=== PATIENT | male | born 1975 | race Two or more races ===

== ENCOUNTER 2021-01-18 14:20 | Outpatient (REF) | payer OTHER, SELFPAY ==
[2021-01-18 15:14] LABS: COVID-19 Test Negative (Negative)
== END 2021-01-18 14:21 | disposition home or self-care (01) ==
LOC: HO.EMPCOV 14:20
PROVIDERS: Visit Provider Internal Medicine
DX: Z20.822 Contact with and (suspected) exposure to COVID-19 (principal)
CPT/HCPCS: 36415; 87635; C9803

== ENCOUNTER 2023-08-11 07:44 | Outpatient (REF) | payer OTHER, SELFPAY ==
[2023-08-11 11:11] LABS: MANUAL DIFF FLAG NO
[2023-08-11 11:17] LABS: Basophils Percent Auto 0.9 % (0-2); Eosinophils Absolute Auto 0.4 X10*3/uL (0.0-0.4); Eosinophils Percent Auto 9.4 % (0-4); Hematocrit 41.1 % (42.0-52.0); Hemoglobin 13.9 g/dl (14.0-18.0); Imm Gran Abs Auto 0.02 X10*3/uL (0.00-0.03); Imm Gran Pct Auto 0.5 % (0.0-0.4); Lymphocytes Absolute Auto 1.9 X10*3/uL (1.2-4.9); Lymphocytes Percent Auto 43.1 % (20-40); Mean Corpuscular HGB Conc 33.8 g/dl (31.0-36.0); Mean Corpuscular Hemoglobin 28.3 pg (27.0-33.0); Mean Corpuscular Volume 83.5 fL (80.0-98.0); Mean Platelet Volume 11.5 fL (9.4-12.4); Monocytes Absolute Auto 0.5 X10*3/uL (0.1-1.2); Monocytes Percent Auto 11.1 % (2-11); Neutrophils Absolute Auto 1.5 x10*3/uL (2.0-8.3); Platelet Count 163 X10*3/uL (160-400); Red Blood Count 4.92 X10*6/uL (4.60-5.80); Red Cell Distribution Width 12.8 % (11.0-16.0); White Blood Count 4.3 X10*3/uL (4.8-10.8)
[2023-08-11 11:20] LABS: Appearance Urine Clear; Glucose Urine UA >=1000 mg/dL (Negative); Leukocyte Esterase Urine Negative (Negative); Nitrite Urine Negative (Negative); Specific Gravity - Urine 1.025 (1.005-1.025); UMIC TRIGGER UACC YES; Urine Blood Negative (Negative); Urine Ketones Negative (Negative); Urine Protein Negative (Neg-Trace)
[2023-08-11 11:23] LABS: Color Urine Yellow
[2023-08-11 11:29] LABS: Estimated Average Glucose 260 mg/dL; Hemoglobin A1c % 10.7 % (<6.0)
[2023-08-11 11:29] LABS: Bacteria Urine None Seen (None Seen); Hyaline Casts Urine 0-2 /LPF (0-2); RBC Urine 0-2 /HPF (0-2); Squamous Epithelial Cell Urine 0-2 /HPF (0-2); WBC Urine 0-5 /HPF (0-5)
[2023-08-11 11:36] LABS: Alanine Aminotransferase 48 U/L (0-40); Albumin Level 4.3 g/dL (3.5-5.0); Alkaline Phosphatase 44 U/L (39-117); Anion Gap 14 (12-20); Aspartate Amino Transferase 22 U/L (5-37); Bilirubin Total 0.7 mg/dL (0.0-1.0); Blood Urea Nitrogen 21 mg/dL (9-16); Calcium 9.2 mg/dL (8.4-10.2); Carbon Dioxide 30 mmol/L (22-29); Chloride 95 mmol/L (96-108); Cholesterol 157 mg/dL (<200); Estimated Glomerular Filt Rate > 60; Glucose Fasting 264 mg/dL (60-99); HDL Cholesterol 28 mg/dL (>40); Potassium 3.6 mmol/L (3.3-5.1); Sodium 135 mmol/L (135-145); Total Protein 7.5 g/dL (6.5-8.0); Triglycerides 632 mg/dL (<150)
[2023-08-11 11:45] LABS: Creatinine Urine 122.14 mg/dL; Microalbum/Creatinine Ratio Ur 34.3 ug/mg cr (<30)
[2023-08-11 11:55] LABS: TSH reflex Free T4 1.34 uIU/mL (0.32-4.0)
== END 2023-08-11 07:45 | disposition home or self-care (01) ==
LOC: HO.HMGCLDS 07:44
PROVIDERS: PCP Nurse Practitioner Family; Visit Provider Nurse Practitioner Family
DX: E11.9 Type 2 diabetes mellitus without complications (principal)
CPT/HCPCS: 36415; 80053; 80061; 81001; 82043; 82570; 83036; 84443; 85025

== ENCOUNTER 2023-08-13 07:46 | Outpatient (AMB) | payer OTHER, SELFPAY ==
--- NOTE | 2023-08-13 08:19 | A.OFFPC_ITS ---
Vital Signs 08/13/23 08:21 08/13/23 08:49 Height 5 ft 11 in Weight 245 lb BMI 34.2 BP 142/82 H 130/78 Blood Pressure Location Rt brachial Position Sitting Pulse 93 Pulse Source Pulse Oximeter Pulse Oximetry (%) 96 Oxygen Delivery Method Room Air Intake Visit Reasons: Transfer from [facility] Intake Note: Pt is here today as a transfer patient to [facility]/ Allergies lisinopril Adverse Reaction (Unknown, Verified 08/20/23 09:29) cough Medication List - Last Reconciled 08/20/23 by ALEXANDRA Vogel atorvastatin 20 mg PO DAILY chlorthalidone 25 mg PO DAILY 90 days doxycycline hyclate 100 mg PO BID empagliflozin (Jardiance) 25 mg PO QAM irbesartan 300 mg PO DAILY metformin ER 1,000 mg (2 x 500 mg) PO BID 90 days metoprolol succinate ER 50 mg PO DAILY Tobacco use date assessed: 08/13/23 Dental Screening Dental Screen Date: 08/13/23 Did you have a dental visit in the last 12 months?: No Was dental information given to patient?: No HPI HPI Comments History of Present Illness Details Patient is a 48-year-old in today for a diabetic follow-up. He was last seen in office 3 months prior to this appointment. He had labs drawn which demonstrated hyperlipidemia, an A1c 10.7, a fasting glucose of 264. He last had an eye exam of February 2023. He is due for Podiatry. He states that he has not modified his diet and has stopped exercising, but intends to improve his diet and start exercising again. The time of appointment patient has a chief complaint of a laceration to his left wheat after walking into the side of his bed. He states that the wound is over 2-week-old but that is not fully healed. He states that there is warmth, redness, which seems like it it has gotten bigger over the past 2 weeks. He has been applying topical bacitracin and cleaning the wound. Denies any recent fevers, nausea, vomiting, diarrhea, or neuropathy. Patient is up-to-date with flu vaccine, he is a current employee of [employer]. He states he will get the COVID vaccine at [facility] when he picks up his prescriptions. [facility] Medical History (Updated 08/20/23 @ 09:31 by ALEXANDRA Vogel) Cellulitis Hyperlipidemia Diabetes Surgical History History of nasal surgery History of vasectomy Family History Father HTN (hypertension) Diabetes mellitus Mother No problems noted. Brother No problems noted. Son No problems noted. Daughter No problems noted. Social History Housing: Apartment Alcohol intake: never Patient Tobacco Use Status: Never used Tobacco e-Cigarette/Vaping Use: Never Used service: No Current occupational status: employed Cognitive needs: No Hearing needs: No Vision needs: Yes Questionnaire PHQ-9 Over the last 2 weeks, how often have you been bothered by any of the following problems? 1. Little interest or pleasure in doing things: not at all 2. Feeling down, depressed, or hopeless: not at all 3. Trouble falling or staying asleep, or sleeping too much: not at all 4. Feeling tired or having little energy: not at all 5. Poor appetite or overeating: not at all 6. Feeling bad about yourself - or that you are a failure or have let yourself or your family down: not at all 7. Trouble concentrating on things, such as reading the newspaper or watching television: not at all 8. Moving or speaking so slowly that other people could have noticed. Or the opposite - being so fidgety or restless that you have been moving around a lot more than usual: not at all 9. Thoughts that you would be better off or of hurting yourself in some way: not at all Total score: 0 Depression Screening Interpretation: Negative Depression Screening Done: Yes 91771 - PHQ-9 Billing: Yes Source: Developed by Drs. Gonzalez Hinojosa, Nazanin Mccray, Bharat Hayes and colleagues, with an educational josh from [employer]. Thrive Questionnaire Date Thrive assessed: 08/13/23 I am a: Patient What is your living situation today?: I have a steady place to live Within the past 12 months, did the food you bought not last and you didn't have the money to get more?: Never true Within the past 12 months, did you worry whether your food would run out before you got money to buy more?: Never true Do you have trouble paying for medicines?: No Do you have trouble getting transportation to medical appointments?: No Do you have trouble paying your heating and electricity bill?: No Do you have trouble taking care of your child, family member or friend?: No Do you have trouble with day-to-day activities such as bathing, preparing meals, shopping, managing finances, etc.?: No Are you currently unemployed and looking for a job?: No Are you interested in more education?: Yes AUDIT C Alcohol Use Questionnaire (AUDIT-C) 1. How often do you have a drink containing alcohol?: Monthly or less 2. How many drinks containing alcohol do you have on a typical day when you are drinking?: 1 or 2 3. How often do you have six or more drinks on one occasion?: Never Total Score: 1 FESTUS-7 AMB Questionnaire FESTUS-7 Date FESTUS - 7 assessed: 08/13/23 Feeling nervous, anxious, or on edge: 0 = Not at all Not being able to stop or control worryin = Not at all Worrying too much about different things: 0 = Not at all Trouble relaxin = Not at all Being so restless that it is hard to sit still: 0 = Not at all Becoming easily annoyed or irritable: 0 = Not at all Feeling afraid as if something awful might happen: 0 = Not at all Total FESTUS-7 score (0-4 normal; 5-9 mild; 10-14 moderate; 15-21 severe): 0 Source: Developed by Drs. Gonzalez Hinojosa, Nazanin Mccray, Bharat Hayes and colleagues, with an educational josh from [employer]. Review of Systems Const Details: Constitutional : No Weight loss, No Fever, No Chills, No Fatigue, No Malaise ENT/Mouth : No sore throat, No Rhinorrhea Eyes: No Eye Pain, No Swelling, No Redness Cardiovascular : No Chest Pain, No SOB, No Dyspnea on Exertion, No Orthopnea, No Edema, No Palpitations Respiratory : No Cough, No Sputum, No Wheezing Gastrointestinal : No Nausea, No Vomiting, No Diarrhea, Admits Constipation, No abdominal Pain, No Hematochezia, No Melena Genitourinary : No Dysuria, No Urinary Frequency, No Hematuria, Musculoskeletal : No joint pain, No Myalgias, No Joint Swelling Skin : Admits small laceration left wheat. Neuro : No Weakness, No Numbness, No Dizziness, No Headache Psych : No Anxiety/Panic, No Depression Heme/Lymph: No Bruising, No Bleeding,No Lymphadenopathy Endocrine : No Polyuria, No Polydipsia All other systems reviewed and are negative Physical exam (Primary Care) Vital Signs: Last Vital Signs Pulse 93 08/13/23 08:21 BP 130/78 08/13/23 08:49 Pulse Ox 96 08/13/23 08:21 Oxygen Delivery Method Room Air 08/13/23 08:21 Care Plan Goal for BP management: Blood pressure retaken numbers improved. Vital signs are stable. BMI result Body Mass Index 34.2 Tobacco/Smoking Status: Tobacco use Status Tobacco use date assessed 08/13/23 08/13/23 08:25 Patient Tobacco Use Status Never used Tobacco 08/13/23 08:25 e-Cigarette/Vaping Use Never Used 08/13/23 08:25 PHQ-9: PHQ-9 Score PHQ-9: Total score 0 08/20/23 09:29 Depression Screening Interpretation: Negative Thrive Assessment: Date of Thrive Assessment Date Thrive assessed 08/13/23 08/13/23 08:27 Const Other: Appearance: Alert.? Oriented X3.? No acute distress.? Head: Normocephalic, atraumatic, no step-offs or deformities Eyes: Pupils equal, round and reactive to light.? ENT: TM intact, pearly askew. Pharnyx normal. ? Neck: Normal inspection.? Neck supple.? CVS: Normal heart rate and rhythm.? Pulses normal.? Respiratory: No respiratory distress.? Breath sounds normal.? Skin: Small dimed sized laceration on ventral aspect of left leg, just above the ankle. Clear discharge, erythema present around laceration. Painful. Warm. Psych: No SI/HI. Neuro: Oriented X 3.? No motor deficit.? No sensory deficit. General: cooperative and no acute distress Results Reviewed Results Reviewed: WBC 4.3 L 4.8-10.8 X10*3/uL RBC 4.92 4.60-5.80 X10*6/uL HGB 13.9 L 14.0-18.0 g/dl HCT 41.1 L 42.0-52.0 % MCV 83.5 80.0-98.0 fL MCH 28.3 27.0-33.0 pg MCHC 33.8 31.0-36.0 g/dl RDW 12.8 11.0-16.0 % PLT 163 160-400 X10*3/uL MPV 11.5 9.4-12.4 fL Neut Pct Auto 35.0 L 45-73 % ImGran Pct Auto 0.5 H 0.0-0.4 % Lymp Pct Auto 43.1 H 20-40 % [place] Pct Auto 11.1 H 2-11 % Eos Pct Auto 9.4 H 0-4 % Baso Pct Auto 0.9 0-2 % NRBC Pct Auto 0.0 0.0-0.2 /100WBC ANC Neut Abs # 1.5 L 2.0-8.3 x10*3/uL ImGran Abs Auto 0.02 0.00-0.03 X10*3/uL Lymph Abs Auto 1.9 1.2-4.9 X10*3/uL [place] Abs Auto 0.5 0.1-1.2 X10*3/uL Eos Abs Auto 0.4 0.0-0.4 X10*3/uL Baso Abs Auto 0.0 0.0-0.2 X10*3/uL NRBC Abs Auto 0.000 0.0-0.012 X10*3/uL Sodium 135 135-145 mmol/L Potassium 3.6 3.3-5.1 mmol/L CL 95 L 96-108 mmol/L CO2 30 H 22-29 mmol/L Gap 14 12-20 BUN 21 H 9-16 mg/dL Creat 1.24 0.5-1.4 mg/dL EGFR > 60 NOTE: For -[place] individuals, multiply the result by 1.210. Chronic Kidney Disease: Estimated GFR < 60 mL/min/1.73m2 Severe Kidney Disease: Estimated GFR < 15 mL/min/1.73m2 FBS 264 H 60-99 mg/dL A fasting glucose of 126 mg/dl or greater on more than one occasion is considered diagnostic of diabetes. CA 9.2 8.4-10.2 mg/dL Total Bili 0.7 0.0-1.0 mg/dL AST (GOT) 22 5-37 U/L ALT (GPT) 48 H 0-40 U/L Protein, Total 7.5 6.5-8.0 g/dL Alb 4.3 3.5-5.0 g/dL Triglyceride 632 H <150 mg/dL Desirable Triglyceride: less than 150 mg/dL Borderline High Triglyceride 150-199 mg/dL High Triglyceride: 200-499 mg/dL Very High Triglyceride: greater than or equal to 5OO mg/dL Cholesterol 157 <200 mg/dL Desirable Cholesterol: less than 200 mg/dL Borderline High Cholesterol: 200-239 mg/dL High Cholesterol: greater than 239 mg/dL LDL Calculated Test not performed <100 mg/dL Unable to calculate the LDL. The formula of Friedwald Abel, and Yamilet is only valid if the triglycerides are less than 400 mg/dl. HDL 28 L >40 mg/dL Desirable HDL: greater than 40 mg/dL Note: This HDL assay may give artificially low results in patients with liver disease. Alk Phos 44 39-117 U/L TSH 1.34 0.32-4.0 uIU/mL These labs were reviewed with patient. Assessment and Plan Assessment & Plan (1) Hyperlipidemia: Comment: Patient is going to have LDL direct lab draw. Will intervene based on those results. Currently the patient is taking atorvastatin 20 mg p.o. daily. Code(s): E78.5 - Hyperlipidemia, unspecified Qualifiers: Hyperlipidemia type: unspecified Qualified Code(s): E78.5 - Hyperlipidemia, unspecified (2) Cellulitis: Comment: Patient has dime-size laceration to ventral aspect of left lower extremity. Patient has been educated on how to clean and cover the laceration. He will be given doxycycline to be taken in its entirety and as directed. Patient has been educated on signs of worsening symptoms and when to return to the office or when to present to the emergency room Code(s): L03.90 - Cellulitis, unspecified Qualifiers: Laterality: left Site of cellulitis: extremity Site of cellulitis of extremity: lower extremity Qualified Code(s): L03.116 - Cellulitis of left lower limb (3) Diabetes: Comment: Patient states that he has not been watching his diet or exercise, but that he intends to start doing that. He has elevated A1c in office today. He has been started Jardiance 25 mg p.o. daily. He has been educated to take a log of his blood pressures and of his blood sugar levels at home. He will need to follow up in 1 month. His last eye exam was in February 2023. He will make an appointment for the podiatry which he has not seen in 2 years. Code(s): E11.9 - Type 2 diabetes mellitus without complications Qualifiers: Diabetes mellitus complication status: without complication Diabetes mellitus lobsterman insulin use: without care home use Diabetes mellitus type: type 2 Qualified Code(s): E11.9 - Type 2 diabetes mellitus without complication s Orders: Orders LDL Cholesterol Direct 08/13/23 E78.5 - Hyperlipidemia, unspecified Medications: New doxycycline hyclate 100 mg PO BID 20 caps 0RF empagliflozin (Jardiance) 25 mg PO QAM 60 tabs 0RF Coding Level of Care Code Est Pt Level 3 (69586) Diagnoses Hyperlipidemia, unspecified hyperlipidemia type E78.5 Hyperlipidemia type: unspecified Cellulitis of left lower extremity L03.116 Laterality: left Site of cellulitis: extremity Site of cellulitis of extremity: lower extremity Type 2 diabetes mellitus without complication, without long-term current use of insulin E11.9 Diabetes mellitus complication status: without complication Diabetes mellitus lobsterman insulin use: without lobsterman use Diabetes mellitus type: type 2 Time Spent (min) 30
[2023-08-13 08:21] VITALS: BP 142/82; PULSE 93; O2SAT 96; BMI 34.2
[2023-08-13 08:49] VITALS: BP 130/78
== END 2023-08-13 08:54 | disposition home or self-care (01) ==
PROVIDERS: PCP Nurse Practitioner Family; Visit Provider Nurse Practitioner Primary Care
DX: E78.5 Hyperlipidemia, unspecified (principal); L03.116 Cellulitis of left lower limb; E11.9 Type 2 diabetes mellitus without complications
CPT/HCPCS: 99213

== ENCOUNTER 2023-08-13 08:56 | Outpatient (REF) | payer OTHER, SELFPAY ==
[2023-08-14 10:23] LABS: LDL Cholesterol Direct 47 mg/dL (<100)
== END 2023-08-13 08:57 | disposition home or self-care (01) ==
LOC: HO.HMGCLDS 08:56
PROVIDERS: PCP Nurse Practitioner Primary Care; Visit Provider Nurse Practitioner Primary Care
DX: E78.5 Hyperlipidemia, unspecified (principal)
CPT/HCPCS: 36415; 83721

== ENCOUNTER 2023-09-06 11:51 | Outpatient (AMB) | payer OTHER, SELFPAY ==
[2023-09-06 12:26] VITALS: BP 120/70; PULSE 97; TEMP 36.7; O2SAT 96; BMI 33.5
--- NOTE | 2023-09-06 12:26 | AM.OFFWIN_ITS ---
Intake Vital Signs 09/06/23 12:26 Height 5 ft 11 in Weight 240 lb BMI 33.5 BP 120/70 Blood Pressure Location Lt brachial Position Sitting Pulse 97 Pulse Source Pulse Oximeter Temp 98.1 F Temp Source Temporal Artery Scan Pulse Oximetry (%) 96 Oxygen Delivery Method Room Air Intake Visit Reasons: EP Cold Symptoms Intake Note: pt is here today for cold symptoms started yesterday Patient Tobacco Use Status: Never used Tobacco Allergies lisinopril Adverse Reaction (Unknown, Verified 09/06/23 12:31) cough Do you need a note to return to daycare/school/sports/work: Yes HPI HPI Comments History of Present Illness Details He presents to office with cold symptoms Co-worker is + covid He saod symptoms started today + fatigue No body aches No congestion but + cough No ST or ear pain PFSH Medical History (Updated 09/06/23 @ 12:43 by Barb Bradley PA-C) Cellulitis Hyperlipidemia Diabetes Surgical History History of nasal surgery History of vasectomy Family History Father HTN (hypertension) Diabetes mellitus Mother No problems noted. Brother No problems noted. Son No problems noted. Daughter No problems noted. Social History Housing: Apartment Alcohol intake: never Patient Tobacco Use Status: Never used Tobacco e-Cigarette/Vaping Use: Never Used service: No Current occupational status: employed Cognitive needs: No Hearing needs: No Vision needs: Yes Review of Systems Const Denies body aches, Denies chills, Reports fatigue and Denies fever(s) Eyes Denies blurry vision ENT Denies dizziness, Denies otalgia, Denies nasal congestion, Denies sore throat and Denies throat swelling Card Denies chest pain and Denies dyspnea Resp Denies chest congestion, Reports cough and Denies dyspnea GI Denies abdominal pain Neuro Denies dizziness Endo Reports fatigue Aller/Immun Denies throat swelling Physical Exam Vital Signs: Last Vital Signs Temp 98.1 F 09/06/23 12:26 Pulse 97 09/06/23 12:26 BP 120/70 09/06/23 12:26 Pulse Ox 96 09/06/23 12:26 Oxygen Delivery Method Room Air 09/06/23 12:26 BMI result Body Mass Index 33.5 General: Non-toxic, NAD. Speaking full sentences. Skin: Warm dry throughout Eye: EOMI, PERRL HENT: Airway patent. Uvula midline. No pharyngeal erythema or edema. No [employer]. Bilateral canals clear. TM non-erythematous, non-bulging. No TM perforation or hemotympanum noted. Respiratory: CTA bilaterally. No wheezes, rales or rhonchi Cardiac: RRR. No murmur MSK: Full ROM extremities. Neurology: A/O. No aphasia or facial droop. Gait without abnormality Psych: Good mood and affect Assessment & Plan Assessment & Plan (1) Exposure to COVID-19 virus: Code(s): Z20.822 - Contact with and (suspected) exposure to COVID-19 Plan: Patient seen and evaluated. + covid exposure with symptoms Will have covid test taken in lab next door Patient gave verbal understanding and had no additional questions or concerns at time of discharge All questions answered Plan Patient seen and evaluated. COVID was negative + exposure and discussed retest in 2 days he would like to have it done at this lab so additional order was placed He will isolate and symptomatic management at home Patient gave verbal understanding and had no additional questions or concerns at time of discharge All questions answered Orders: Orders BinaxNOW Covid-19 Ag Today Z20.822 - Contact with and (suspected) exposure to COVID-19 BinaxNOW Covid-19 Ag 09/08/23 Z20.822 - Contact with and (suspected) exposure to COVID-19 Coding Level of Care Code Est Pt Level 3 (21690) Diagnoses Exposure to COVID-19 virus Z20.822
== END 2023-09-06 15:18 | disposition home or self-care (01) ==
PROVIDERS: PCP Nurse Practitioner Primary Care; Visit Provider Physician Assistant
DX: Z20.822 Contact with and (suspected) exposure to COVID-19 (principal)
CPT/HCPCS: 99213

== ENCOUNTER 2023-09-06 12:44 | Outpatient (REF) | payer OTHER, SELFPAY ==
[2023-09-06 13:16] LABS: Binax Internal Control QC Valid; Binax Now Covid-19 Ag Negative (Negative); Binax Performed by: HO.TORG
== END 2023-09-06 12:45 | disposition home or self-care (01) ==
LOC: HO.HMGCLDS 12:44
PROVIDERS: PCP Nurse Practitioner Primary Care; Visit Provider Physician Assistant
DX: Z11.52 Encounter for screening for COVID-19 (principal); Z20.822 Contact with and (suspected) exposure to COVID-19
CPT/HCPCS: 87811

== ENCOUNTER 2023-09-13 07:46 | Outpatient (AMB) | payer OTHER, SELFPAY ==
[2023-09-13 08:10] VITALS: BP 130/82; PULSE 96; O2SAT 95; BMI 33.6
--- NOTE | 2023-09-13 08:10 | A.OFFPC_ITS ---
Vital Signs 09/13/23 08:10 Height 5 ft 11 in Weight 241 lb BMI 33.6 BP 130/82 Blood Pressure Location Rt brachial Position Sitting Pulse 96 Pulse Source Pulse Oximeter Pulse Oximetry (%) 95 Oxygen Delivery Method Room Air Intake Visit Reasons: 1 Month Follow Up~ Intake Note: Pt is here to follow up for his BP and he has forgotten his BP logs Allergies lisinopril Adverse Reaction (Unknown, Verified 09/13/23 08:48) cough Medication List - Last Reconciled 09/13/23 by ALEXANDRA Vogel atorvastatin 20 mg PO DAILY chlorthalidone 25 mg PO DAILY 90 days empagliflozin (Jardiance) 25 mg PO QAM irbesartan 300 mg PO DAILY metformin ER 1,000 mg (2 x 500 mg) PO BID 90 days metoprolol succinate ER 50 mg PO DAILY Tobacco use date assessed: 09/13/23 Dental Screening Dental Screen Date: 09/13/23 Did you have a dental visit in the last 12 months?: No Did you have a dental problem in the last 6 months where you did not have access to dental care?: No Was dental information given to patient?: No HPI HPI Comments History of Present Illness Details Patient is a 48-year-old male here today for follow-up regarding cellulitis of the left lower extremity, elevated sugar, and hypertension. Patient was last seen in office 1 month prior, where he had an A1c of 10.7. The patient was put on Jardiance 25 mg and instructed to keep blood sugar logs and blood pressure logs at home. Today the patient has blood pressure sugar log that demonstrated postprandial blood sugar levels averaging between 130 and 180. Patient states that he would like to continue to try and modify his diet and utilize exercise to control his blood sugar levels. His blood pressure readings at home have been normal. Patient has no complaints at time appointment today. [facility] Medical History (Updated 09/13/23 @ 08:59 by ALEXANDRA Vogel) Cellulitis Hyperlipidemia Diabetes Surgical History History of nasal surgery History of vasectomy Family History Father HTN (hypertension) Diabetes mellitus Mother No problems noted. Brother No problems noted. Son No problems noted. Daughter No problems noted. Social History Housing: Apartment Alcohol intake: never Patient Tobacco Use Status: Never used Tobacco e-Cigarette/Vaping Use: Never Used service: No Current occupational status: employed Cognitive needs: No Hearing needs: No Vision needs: Yes Questionnaire PHQ-9 Over the last 2 weeks, how often have you been bothered by any of the following problems? 1. Little interest or pleasure in doing things: not at all 2. Feeling down, depressed, or hopeless: not at all 3. Trouble falling or staying asleep, or sleeping too much: not at all 4. Feeling tired or having little energy: not at all 5. Poor appetite or overeating: not at all 6. Feeling bad about yourself - or that you are a failure or have let yourself or your family down: not at all 7. Trouble concentrating on things, such as reading the newspaper or watching television: not at all 8. Moving or speaking so slowly that other people could have noticed. Or the opposite - being so fidgety or restless that you have been moving around a lot more than usual: not at all 9. Thoughts that you would be better off or of hurting yourself in some way: not at all Total score: 0 Depression Screening Interpretation: Negative Depression Screening Done: Yes 33461 - PHQ-9 Billing: Yes Source: Developed by Drs. Gonzalez Hinojosa, Nazanin Mccray, Bharat Hayes and colleagues, with an educational josh from [employer]. Thrive Questionnaire Date Thrive assessed: 09/13/23 I am a: Patient What is your living situation today?: I have a steady place to live Within the past 12 months, did the food you bought not last and you didn't have the money to get more?: Never true Within the past 12 months, did you worry whether your food would run out before you got money to buy more?: Never true Do you have trouble paying for medicines?: No Do you have trouble getting transportation to medical appointments?: No Do you have trouble paying your heating and electricity bill?: No Do you have trouble taking care of your child, family member or friend?: No Do you have trouble with day-to-day activities such as bathing, preparing meals, shopping, managing finances, etc.?: No Are you currently unemployed and looking for a job?: No Are you interested in more education?: No AUDIT C Alcohol Use Questionnaire (AUDIT-C) 1. How often do you have a drink containing alcohol?: Monthly or less 2. How many drinks containing alcohol do you have on a typical day when you are drinking?: 1 or 2 3. How often do you have six or more drinks on one occasion?: Never Total Score: 1 FESTUS-7 AMB Questionnaire FESTUS-7 Date FESTUS - 7 assessed: 09/13/23 Feeling nervous, anxious, or on edge: 0 = Not at all Not being able to stop or control worryin = Not at all Worrying too much about different things: 0 = Not at all Trouble relaxin = Not at all Being so restless that it is hard to sit still: 0 = Not at all Becoming easily annoyed or irritable: 0 = Not at all Feeling afraid as if something awful might happen: 0 = Not at all Total FESTUS-7 score (0-4 normal; 5-9 mild; 10-14 moderate; 15-21 severe): 0 Source: Developed by Drs. Gonzalez Hinojosa, Nazanin Mccray, Bharat Hayes and colleagues, with an educational josh from [employer]. Review of Systems Const Details: Constitutional : No Weight loss, No Fever, No Chills, No Fatigue, No Malaise ENT/Mouth : No sore throat, No Rhinorrhea Eyes: No Eye Pain, No Swelling, No Redness Cardiovascular : No Chest Pain, No SOB, No Dyspnea on Exertion, No Orthopnea, No Edema, No Palpitations Respiratory : No Cough, No Sputum, No Wheezing Gastrointestinal : No Nausea, No Vomiting, No Diarrhea, No Constipation, No abdominal Pain, No Hematochezia, No Melena Genitourinary : No Dysuria, No Urinary Frequency, No Hematuria, Musculoskeletal : No joint pain, No Myalgias, No Joint Swelling Skin : No Skin Lesions, No rash Neuro : No Weakness, No Numbness, No Dizziness, No Headache Psych : No Anxiety/Panic, No Depression Heme/Lymph: No Bruising, No Bleeding,No Lymphadenopathy Endocrine : No Polyuria, No Polydipsia All other systems reviewed and are negative Physical exam (Primary Care) Vital Signs: Last Vital Signs Pulse 96 09/13/23 08:10 BP 130/82 09/13/23 08:10 Pulse Ox 95 09/13/23 08:10 Oxygen Delivery Method Room Air 09/13/23 08:10 Care Plan Goal for BP management: Patient will continue take blood pressure readings at home. BMI result Body Mass Index 33.6 Tobacco/Smoking Status: Tobacco use Status Tobacco use date assessed 09/13/23 09/13/23 08:15 Patient Tobacco Use Status Never used Tobacco 09/13/23 08:13 e-Cigarette/Vaping Use Never Used 09/13/23 08:13 Depression Screening Interpretation: Negative Thrive Assessment: Date of Thrive Assessment Date Thrive assessed 08/13/23 09/13/23 08:13 Const Other: Appearance: Alert.? Oriented X3.? No acute distress.? Eyes: Pupils equal, round and reactive to light.?Sclera white. ENT: Pharynx normal.? Neck: Normal inspection.? Neck supple.? CVS: Normal heart rate and rhythm.? Pulses normal.? Respiratory: No respiratory distress.? Breath sounds normal.? Skin: Skin warm and dry.? Normal skin color. No drainage or erythema. No signs of active infection. Neuro: Oriented X 3.? No motor deficit.? No sensory deficit. CN 2-12 intact. Sensate to monofilament Results Reviewed Results Reviewed: Patient's urinary microalbumin was 34.3. Assessment and Plan Assessment & Plan (1) Hyperlipidemia: Comment: Patient's LDL direct value came back at 47. His triglyceride level is 632. Patient will be started on fenofibrate to be taken as directed. Patient has been educated on the side effects of these medications and how to take them properly. Code(s): E78.5 - Hyperlipidemia, unspecified Qualifiers: Hyperlipidemia type: unspecified Qualified Code(s): E78.5 - Hyperlipidemia, unspecified (2) Diabetes: Comment: Patient has a follow-up appointment in 2 months were you have his A1c rechecked. Recently had eye exam where he is sending us the results. Patient would like to continue to modify his diet and increase exercise to try to control blood sugar levels. Code(s): E11.9 - Type 2 diabetes mellitus without complications Qualifiers: Diabetes mellitus type: type 2 Diabetes mellitus terminal manager insulin use: without terminal manager use Diabetes mellitus complication status: without complication Qualified Code(s): E11.9 - Type 2 diabetes mellitus without comp lications (3) Microalbuminuria: Comment: Patient had education session to reinforce the importance of controlled blood sugar levels. Patient will get referral to Nephrology. He is agreeable to this plan Code(s): R80.9 - Proteinuria, unspecified Plan: Follow-up in 2 month Plan Take your medications as prescribed. If you were prescribed antibiotics today, it is important that you take your medication to their entirety, do not skip any doses, do not finish them early. Follow-up with your primary care provider this week. Return to the emergency department with new or worsening symptoms. Such as fevers, chills, chest pain, shortness of breath, nausea, vomiting, dizziness, headache, vision changes, lethargy In case of emergency call 911 Coding Level of Care Code Est Pt Level 3 (26750) Diagnoses Hyperlipidemia, unspecified hyperlipidemia type E78.5 Hyperlipidemia type: unspecified Type 2 diabetes mellitus without complication, without long-term current use of insulin E11.9 Diabetes mellitus type: type 2 Diabetes mellitus terminal manager insulin use: without terminal manager use Diabetes mellitus complication status: without complication Microalbuminuria R80.9 Time Spent (min) 45
== END 2023-09-13 09:30 | disposition home or self-care (01) ==
PROVIDERS: PCP Nurse Practitioner Primary Care; Visit Provider Nurse Practitioner Primary Care
DX: E78.5 Hyperlipidemia, unspecified (principal); E11.9 Type 2 diabetes mellitus without complications; R80.9 Proteinuria, unspecified
CPT/HCPCS: 99214

== ENCOUNTER 2023-10-09 10:52 | Outpatient (AMB) | payer OTHER, SELFPAY ==
--- NOTE | 2023-10-09 10:53 | HO.NEPHOV ---
HPI HPI Comments History of Present Illness Details Middle aged man with DM since 2021 and HTN and Obesity referred for protienuria Currently on Irbesartan Jardiance was added a month ago USed to weight 250 lbs Lost 20 lbs with diet and exercise- stationary bike [facility] Medical History (Updated 10/09/23 @ 11:14 by Kervin Bobo MD) Cellulitis Hyperlipidemia Diabetes Surgical History History of nasal surgery History of vasectomy Family History Father HTN (hypertension) Diabetes mellitus Mother No problems noted. Brother No problems noted. Son No problems noted. Daughter No problems noted. Social History Housing: Apartment Alcohol intake: never Patient Tobacco Use Status: Never used Tobacco e-Cigarette/Vaping Use: Never Used service: No Current occupational status: employed Cognitive needs: No Hearing needs: No Vision needs: Yes Vital Signs 10/09/23 10:54 Height 5 ft 11 in Weight 236 lb 6 oz BMI 33.0 BP 128/80 Blood Pressure Location Rt brachial Position Sitting Pulse 95 Pulse Source Pulse Oximeter Pulse Oximetry (%) 97 Oxygen Delivery Method Room Air Physical Exam Vital Signs: Last Vital Signs Pulse 95 10/09/23 10:54 BP 128/80 10/09/23 10:54 Pulse Ox 97 10/09/23 10:54 Oxygen Delivery Method Room Air 10/09/23 10:54 BMI result Body Mass Index 33.0 Const General: comfortable Nutritional Appearance: well nourished Orientation/consciousness: patient oriented x3 HEENT Head: No normal to inspection Mouth: moist mucous membranes Neck Neck: Yes supple and Yes no JVD Resp Auscultation: clear to auscultation bilaterally, no rales and rub present Cardio Jugular venous distension: no JVD Palpation: no palpable S3 and no palpable S4 Heart sounds: no rubs GI Palpation (GI): Soft to palpation and nontender Percussion: No Fluid wave present General: Yes no CVA tenderness Back/Spine/Pelvis Back: no CVA tenderness Skin General skin exam: no rashes or lesions noted Neuro General: patient oriented x3 Extrem General: Yes no pedal edema and No clubbing Assessment & Plan Assessment & Plan (1) Microalbuminuria: Comment: Most likely due to the combination diabetic kidney disease and obesity Code(s): R80.9 - Proteinuria, unspecified Plan: Maintain A1C < 7% Continue Irbesartan for renal protection Discussed weight loss Increase physical activity Low salt diet Increase PO fluid intake Work up as outlined Orders: Orders Electrolytes 4 Weeks R80.9 - Proteinuria, unspecified Creatinine 4 Weeks R80.9 - Proteinuria, unspecified Calcium 4 Weeks R80.9 - Proteinuria, unspecified Sodium Urine Random 4 Weeks R80.9 - Proteinuria, unspecified Blood Urea Nitrogen 4 Weeks R80.9 - Proteinuria, unspecified Total Protein Urine Random 4 Weeks R80.9 - Proteinuria, unspecified Creatinine Urine 4 Weeks R80.9 - Proteinuria, unspecified Coding Level of Care Code New Pt Level 4 (73930) Diagnoses Microalbuminuria R80.9 Results Reviewed Nephrology Results: Hgb 13.9 g/dl (14.0-18.0) L 08/11/23 WBC 4.3 X10*3/uL (4.8-10.8) L 08/11/23 Plt Count 163 X10*3/uL (160-400) 08/11/23 Sodium 135 mmol/L (135-145) 08/11/23 Potassium 3.6 mmol/L (3.3-5.1) 08/11/23 Chloride 95 mmol/L (96-108) L 08/11/23 Carbon Dioxide 30 mmol/L (22-29) H 08/11/23 BUN 21 mg/dL (9-16) H 08/11/23 Creatinine 1.24 mg/dL (0.5-1.4) 08/11/23 Calcium 9.2 mg/dL (8.4-10.2) 08/11/23 Urine Protein Negative mg/dL (Neg-Trace) 08/11/23 Urine Creatinine 122.14 mg/dL 08/11/23
[2023-10-09 10:54] VITALS: BP 128/80; PULSE 95; O2SAT 97; BMI 33.0
== END 2023-10-09 11:12 | disposition home or self-care (01) ==
PROVIDERS: PCP Nurse Practitioner Primary Care; Referring Provider Nurse Practitioner Primary Care; Visit Provider Internal Medicine Hypertension Specialist
DX: R80.9 Proteinuria, unspecified (principal)
CPT/HCPCS: 99204

== ENCOUNTER → 2023-10-09 10:52 | Outpatient (BNVA) | payer OTHER, SELFPAY | PROVIDERS: PCP Nurse Practitioner Primary Care; Referring Provider Nurse Practitioner Primary Care; Visit Provider Internal Medicine Hypertension Specialist ==

== ENCOUNTER 2023-11-17 08:15 | Outpatient (REF) | payer OTHER, SELFPAY ==
[2023-11-17 12:00] LABS: Creatinine Urine 67.96 mg/dL; Total Protein Urine Random 8 mg/dL (<12)
[2023-11-17 12:26] LABS: Anion Gap 13 (12-20); Blood Urea Nitrogen 20 mg/dL (9-16); Calcium 9.5 mg/dL (8.4-10.2); Carbon Dioxide 29 mmol/L (22-29); Chloride 99 mmol/L (96-108); Estimated Glomerular Filt Rate > 60; Potassium 3.9 mmol/L (3.3-5.1); Sodium 137 mmol/L (135-145)
== END 2023-11-17 08:16 | disposition home or self-care (01) ==
LOC: HO.HMGCLDS 08:15
PROVIDERS: PCP Nurse Practitioner Primary Care; Visit Provider Internal Medicine Hypertension Specialist
DX: R80.9 Proteinuria, unspecified (principal)
CPT/HCPCS: 36415; 80051; 82310; 82565; 82570; 84156; 84300; 84520

== ENCOUNTER 2023-11-19 12:03 | Outpatient (AMB) | payer OTHER, SELFPAY ==
[2023-11-19 12:05] VITALS: BP 120/80; PULSE 95; O2SAT 96; BMI 32.5
--- NOTE | 2023-11-19 12:05 | HO.NEPHOV ---
HPI HPI Comments History of Present Illness Details Middle aged man with DM since 2021 and HTN and Obesity referred for protienuria Currently on Irbesartan Jardiance was added a month ago USed to weight 250 lbs Lost 20 lbs with diet and exercise- stationary bike [facility] Medical History (Updated 10/09/23 @ 11:14 by Kervin Bobo MD) Cellulitis Hyperlipidemia Diabetes Surgical History History of nasal surgery History of vasectomy Family History Father HTN (hypertension) Diabetes mellitus Mother No problems noted. Brother No problems noted. Son No problems noted. Daughter No problems noted. Social History Housing: Apartment Alcohol intake: never Patient Tobacco Use Status: Never used Tobacco e-Cigarette/Vaping Use: Never Used service: No Current occupational status: employed Cognitive needs: No Hearing needs: No Vision needs: Yes Vital Signs 11/19/23 12:05 Height 5 ft 11 in Weight 233 lb BMI 32.5 BP 120/80 Blood Pressure Location Lt brachial Position Sitting Pulse 95 Pulse Source Pulse Oximeter Pulse Oximetry (%) 96 Oxygen Delivery Method Room Air Physical Exam Vital Signs: Last Vital Signs Pulse 95 11/19/23 12:05 BP 120/80 11/19/23 12:05 Pulse Ox 96 11/19/23 12:05 Oxygen Delivery Method Room Air 11/19/23 12:05 BMI result Body Mass Index 32.5 Const General: comfortable Nutritional Appearance: well nourished Orientation/consciousness: patient oriented x3 HEENT Head: No normal to inspection Mouth: moist mucous membranes Neck Neck: Yes supple and Yes no JVD Resp Auscultation: clear to auscultation bilaterally, no rales and rub present Cardio Jugular venous distension: no JVD Palpation: no palpable S3 and no palpable S4 Heart sounds: no rubs GI Palpation (GI): Soft to palpation and nontender Percussion: No Fluid wave present General: Yes no CVA tenderness Back/Spine/Pelvis Back: no CVA tenderness Skin General skin exam: no rashes or lesions noted Neuro General: patient oriented x3 Extrem General: Yes no pedal edema and No clubbing Assessment & Plan Assessment & Plan (1) Microalbuminuria: Comment: Most likely due to the combination diabetic kidney disease and obesity Code(s): R80.9 - Proteinuria, unspecified Plan: Maintain A1C < 7% Continue Irbesartan for renal protection Discussed weight loss Increase physical activity Low salt diet Increase PO fluid intake Coding Level of Care Code Est Pt Level 3 (28285) Diagnoses Microalbuminuria R80.9 Results Reviewed Nephrology Results: Hgb 13.9 g/dl (14.0-18.0) L 08/11/23 WBC 4.3 X10*3/uL (4.8-10.8) L 08/11/23 Plt Count 163 X10*3/uL (160-400) 08/11/23 Sodium 137 mmol/L (135-145) 11/17/23 Potassium 3.9 mmol/L (3.3-5.1) 11/17/23 Chloride 99 mmol/L (96-108) 11/17/23 Carbon Dioxide 29 mmol/L (22-29) 11/17/23 BUN 20 mg/dL (9-16) H 11/17/23 Creatinine 0.95 mg/dL (0.5-1.4) 11/17/23 Calcium 9.5 mg/dL (8.4-10.2) 11/17/23 Urine Protein Negative mg/dL (Neg-Trace) 08/11/23 Urine Creatinine 67.96 mg/dL 11/17/23
== END 2023-11-19 12:15 | disposition home or self-care (01) ==
PROVIDERS: PCP Nurse Practitioner Primary Care; Visit Provider Internal Medicine Hypertension Specialist
DX: R80.9 Proteinuria, unspecified (principal)
CPT/HCPCS: 99213

== ENCOUNTER → 2023-11-19 12:03 | Outpatient (BNVA) | payer OTHER, SELFPAY | PROVIDERS: PCP Nurse Practitioner Primary Care; Visit Provider Internal Medicine Hypertension Specialist ==

== ENCOUNTER 2024-01-07 08:18 | Outpatient (AMB) | payer OTHER, SELFPAY ==
--- NOTE | 2024-01-07 08:21 | MHC.PC.OV ---
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 Allergies lisinopril Adverse Reaction (Unknown, Verified 01/07/24 08:35) cough Medication List - Last Reconciled 01/07/24 by ALEXANDRA Vogel atorvastatin 20 mg PO DAILY chlorthalidone 25 mg PO DAILY 90 days empagliflozin (Jardiance) 25 mg PO QAM fenofibric acid (choline) (Trilipix) 45 mg PO BEDTIME irbesartan 300 mg PO DAILY metformin ER 1,000 mg (2 x 500 mg) PO BID metoprolol succinate ER 50 mg PO DAILY Tobacco use date assessed: 09/13/23 Dental Screening Dental Screen Date: 09/13/23 HPI HPI Comments History of Present Illness Details Patient is a 48-year-old male here for a diabetic follow-up. Patient denies polyuria and polydipsia. Previous in office A1c was 10.7. Patient was placed on Jardiance 25 mg, had metformin increased to 1000 mg b.i.d. he has also been working on his diet and exercise. Patient declines the pneumococcal vaccine today. Patient is up-to-date with ophthalmology. Patient is due for podiatry will refer. Patient is in office A1c is 9.7. Discussed with that he should be started on either insulin, or 3rd hypoglycemic agent. Patient has declined this states that he wants to continue to improve with diet and exercise. Patient re-educated again on the need to control blood sugar levels. Patient states that he understands and would still like see if he can improve his A1c and blood sugar levels with diet and exercise. Patient has hypertriglyceridemia. Was started on atorvastatin and fenofibrate 3 months prior. Patient has been instructed to redraw fasting labs within next 2 weeks. [facility] Medical History Cellulitis Hyperlipidemia Diabetes Surgical History History of nasal surgery History of vasectomy Family History Father HTN (hypertension) Diabetes mellitus Mother No problems noted. Brother No problems noted. Son No problems noted. Daughter No problems noted. Social History Housing: Apartment Alcohol intake: never Patient Tobacco Use Status: Never used Tobacco e-Cigarette/Vaping Use: Never Used service: No Current occupational status: employed Cognitive needs: No Hearing needs: No Vision needs: Yes Questionnaire Thrive Questionnaire Date Thrive assessed: 09/13/23 FESTUS-7 AMB Questionnaire FESTUS-7 Date FESTUS - 7 assessed: 09/13/23 Source: Developed by Drs. Gonzalez Hinojosa, Nazanin Mccray, Bharat Hayes and colleagues, with an educational josh from [employer]. Review of Systems Const All systems reviewed & are unremarkable except as noted in HPI and below Denies headache(s) ENT Denies dizziness and Denies headache(s) Card Denies chest pain and Denies dyspnea Resp Denies dyspnea GI Denies diarrhea, Denies nausea and Denies vomiting Neuro Denies dizziness and Denies headache(s) Endo Denies polydipsia and Denies polyuria Physical exam (Primary Care) Vital Signs: Last Vital Signs Pulse 76 01/07/24 08:25 BP 128/78 01/07/24 08:25 Pulse Ox 98 01/07/24 08:25 Oxygen Delivery Method Room Air 01/07/24 08:25 BMI result Body Mass Index 32.8 Tobacco/Smoking Status: Tobacco use Status Tobacco use date assessed 09/13/23 01/07/24 08:21 Patient Tobacco Use Status Never used Tobacco 01/07/24 08:21 e-Cigarette/Vaping Use Never Used 01/07/24 08:21 Thrive Assessment: Date of Thrive Assessment Date Thrive assessed 09/13/23 01/07/24 08:21 Const Other: Appearance: Alert.? Oriented X3.? No acute distress.? Head: Normocephalic, atraumatic Eyes: Pupils equal, round and reactive to light.? Neck: Normal inspection.? Neck supple.? CVS: Normal heart rate and rhythm.? Pulses normal.? Respiratory: No respiratory distress.? Breath sounds normal.? Neuro: Oriented X 3.? No motor deficit.? No sensory deficit. CN 2-12 intact Results AMB Hemoglobin A1c AMB Hemoglobin A1c 9.7 % Last Edit by Andres Hernandez CMA on 01/07/24 08:39 Results Reviewed Results Reviewed: Laboratory Last Values Hgb A1c (Clinic) 9.7 % (4.0-6.0) H 01/07/24 08:39 Assessment and Plan Assessment & Plan (1) Diabetes: Comment: Explained to patient the importance of adding 3rd p.o. hypoglycemic agent, or starting insulin. Patient has denied in with instead like to continue to improve with diet exercise. Patient will be asked to record blood sugar levels at home bring them to his next appointment. Patient also will have referral to Podiatry Code(s): E11.9 - Type 2 diabetes mellitus without complications Qualifiers: Diabetes mellitus complication status: without complication Diabetes mellitus senior living insulin use: without termite control technician use Diabetes mellitus type: type 2 Qualified Code(s): E11.9 - Type 2 diabetes mellitus without complications (2) Hyperlipidemia: Comment: Patient's LDL direct value came back at 47. His triglyceride level is 632. Patient was started on fenofibrate to be taken as directed. Patient has been educated on the side effects of these medications and how to take them properly. Patient due for fasting labs. Code(s): E78.5 - Hyperlipidemia, unspecified Qualifiers: Hyperlipidemia type: unspecified Qualified Code(s): E78.5 - Hyperlipidemia, unspecified Plan: Take your medications as prescribed. If you were prescribed antibiotics today, it is important that you take your medication to their entirety, do not skip any doses, do not finish them early. Follow-up with your primary care provider this week. Return to the emergency department with new or worsening symptoms. Such as fevers, chills, chest pain, shortness of breath, nausea, vomiting, dizziness, headache, vision changes, lethargy In case of emergency call 911 Plan Follow-up in 3 months. Orders: Orders Comprehensive Met. Panel 01/07/24 E11.9 - Type 2 diabetes mellitus without complications Lipid Panel 01/07/24 E78.5 - Hyperlipidemia, unspecified AMB Hemoglobin A1c 01/07/24 Z13.9 - Encounter for screening, unspecified Referrals Podiatry Referral E11.9 - Type 2 diabetes mellitus without complications Medications: Refilled fenofibric acid (choline) (Trilipix) 45 mg PO BEDTIME 90 caps 0RF Review Patient declined Pneumococcal Vaccine: 01/07/24 Coding Level of Care Code Est Pt Level 3 (59391) Diagnoses Type 2 diabetes mellitus without complication, without long-term current use of insulin E11.9 Diabetes mellitus complication status: without complication Diabetes mellitus senior living insulin use: without senior living use Diabetes mellitus type: type 2 Hyperlipidemia, unspecified hyperlipidemia type E78.5 Hyperlipidemia type: unspecified Time Spent (min) 28
[2024-01-07 08:25] VITALS: BP 128/78; PULSE 76; O2SAT 98; BMI 32.8
== END 2024-01-07 10:03 | disposition home or self-care (01) ==
PROVIDERS: PCP Nurse Practitioner Primary Care; Visit Provider Nurse Practitioner Primary Care
DX: E11.9 Type 2 diabetes mellitus without complications (principal)
CPT/HCPCS: 83036; 99213

== ENCOUNTER 2024-03-10 09:42 | Outpatient (AMB) | payer OTHER, SELFPAY ==
--- NOTE | 2024-03-10 09:45 | MHC.PC.OV ---
Vital Signs 03/10/24 09:47 03/10/24 10:10 Height 5 ft 11 in Weight 229 lb BMI 31.9 BP 114/76 Blood Pressure Location Lt brachial Position Sitting Pulse 101 H 88 Pulse Source Pulse Oximeter Auscultation Pulse Oximetry (%) 96 Oxygen Delivery Method Room Air Intake Visit Reasons: f/u Intake Note: pt is here for follow up for DM. Allergies lisinopril Adverse Reaction (Unknown, Verified 03/10/24 10:00) cough Medication List - Last Reconciled 03/10/24 by ALEXANDRA Vogel atorvastatin 20 mg PO DAILY chlorthalidone 25 mg PO DAILY 90 days empagliflozin (Jardiance) 25 mg PO QAM fenofibric acid (choline) (Trilipix) 45 mg PO BEDTIME irbesartan 300 mg PO DAILY metformin ER 1,000 mg (2 x 500 mg) PO BID metoprolol succinate ER 50 mg PO DAILY Tobacco use date assessed: 03/10/24 Dental Screening Dental Screen Date: 09/13/23 HPI HPI Comments History of Present Illness Details Is a 48-year-old male in today for a diabetic follow-up. Patient denies symptoms of polyuria polydipsia or neuropathy. He is currently utilizing metformin 1000 mg p.o. b.i.d., as well as Jardiance 25 mg p.o. daily. Patient has lost 6 lb since his previous visit states that he has been working on his diet and improve exercise. Will order fasting labs today. Patient eligible for A1c redrawn 3 weeks. Will add 3rd oral hypoglycemic based on A1c results. Patient is up-to-date with microalbumin and currently is establish care with Nephrology. [facility] Medical History Cellulitis Hyperlipidemia Diabetes Surgical History History of nasal surgery History of vasectomy Family History Father HTN (hypertension) Diabetes mellitus Mother No problems noted. Brother No problems noted. Son No problems noted. Daughter No problems noted. Social History Housing: Apartment Alcohol intake: never Patient Tobacco Use Status: Never used Tobacco e-Cigarette/Vaping Use: Never Used service: No Current occupational status: employed Cognitive needs: No Hearing needs: No Vision needs: Yes Questionnaire Thrive Questionnaire Date Thrive assessed: 09/13/23 AUDIT C Alcohol Use Questionnaire (AUDIT-C) 1. How often do you have a drink containing alcohol?: Monthly or less 2. How many drinks containing alcohol do you have on a typical day when you are drinking?: 1 or 2 3. How often do you have six or more drinks on one occasion?: Never Total Score: 1 FESTUS-7 AMB Questionnaire FESTUS-7 Date FESTUS - 7 assessed: 09/13/23 Source: Developed by Drs. Gonzalez Hinojosa, Nazanin Mccray, Bharat Hayes and colleagues, with an educational josh from [employer]. Review of Systems Const All systems reviewed & are unremarkable except as noted in HPI and below Physical exam (Primary Care) Vital Signs: Last Vital Signs Pulse 101 H 03/10/24 09:47 BP 114/76 03/10/24 09:47 Pulse Ox 96 03/10/24 09:47 Oxygen Delivery Method Room Air 03/10/24 09:47 BMI result Body Mass Index 31.9 Tobacco/Smoking Status: Tobacco use Status Tobacco use date assessed 03/10/24 03/10/24 09:52 Patient Tobacco Use Status Never used Tobacco 03/10/24 09:52 e-Cigarette/Vaping Use Never Used 03/10/24 09:52 Thrive Assessment: Date of Thrive Assessment Date Thrive assessed 09/13/23 03/10/24 09:52 Const Other: Appearance: Alert.? Oriented X3.? No acute distress.? Head: Normocephalic, atraumatic. CVS: Normal heart rate and rhythm.? Pulses normal.? Respiratory: No respiratory distress.? Breath sounds normal.? Skin: Skin warm and dry.? Normal skin color.? Normal skin turgor.? Extremities: No lower extremity edema. 5/5 strength to bilateral upper and lower extremities Neuro: Oriented X 3.? No motor deficit.? No sensory deficit. CN 2-12 intact Assessment and Plan Assessment & Plan (1) Diabetes: Comment: Explained to patient the importance of adding 3rd p.o. hypoglycemic agent, or starting insulin. Patient has denied in with instead like to continue to improve with diet exercise. Patient will be asked to record blood sugar levels at home bring them to his next appointment. Patient also will have referral to Podiatry Code(s): E11.9 - Type 2 diabetes mellitus without complications Qualifiers: Diabetes mellitus type: type 2 Diabetes mellitus fdc insulin use: without fdc use Diabetes mellitus complication status: without complication Qualified Code(s): E11.9 - Type 2 diabetes mellitus without complications (2) Microalbuminuria: Comment: Most likely due to the combination diabetic kidney disease and obesity. Has established care with car icer. Code(s): R80.9 - Proteinuria, unspecified (3) Hyperlipidemia: Comment: Patient's LDL direct value came back at 47. His triglyceride level is 632. Patient was started on fenofibrate to be taken as directed. Patient has been educated on the side effects of these medications and how to take them properly. Patient due for fasting labs. Code(s): E78.5 - Hyperlipidemia, unspecified Qualifiers: Hyperlipidemia type: unspecified Qualified Code(s): E78.5 - Hyperlipidemia, unspecified Plan: will redraw labs Plan follow up in 3 months. Orders: Orders Complete Blood Count Auto Diff Today Z13.0 - Encounter for screening for diseases of the blood and blood-forming organs and certain disorders involving the immune mechanism Comprehensive Met. 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
[2024-03-10 09:47] VITALS: BP 114/76; PULSE 101; O2SAT 96; BMI 31.9
[2024-03-10 10:10] VITALS: PULSE 88
== END 2024-03-10 10:21 | disposition home or self-care (01) ==
PROVIDERS: PCP Nurse Practitioner Primary Care; Visit Provider Nurse Practitioner Primary Care
DX: E11.9 Type 2 diabetes mellitus without complications (principal); R80.9 Proteinuria, unspecified; E78.5 Hyperlipidemia, unspecified
CPT/HCPCS: 99213

== ENCOUNTER 2024-07-21 07:48 | Outpatient (REF) | payer OTHER, SELFPAY ==
[2024-07-21 10:48] LABS: Alanine Aminotransferase 38 U/L (0-40); Aspartate Amino Transferase 34 U/L (5-37); Cholesterol 135 mg/dL (<200); HDL Cholesterol 29 mg/dL (>40); LDL Cholesterol Calculated 41 mg/dL (<100); Triglycerides 327 mg/dL (<150)
[2024-07-21 10:56] LABS: Estimated Average Glucose 209 mg/dL; Hemoglobin A1c % 8.9 % (<6.0); Total Hemoglobin (HGBA1C) 3742.7116 umol/L
== END 2024-07-21 07:49 | disposition home or self-care (01) ==
LOC: HO.HMGCLDS 07:48
PROVIDERS: PCP Internal Medicine; Visit Provider Internal Medicine
DX: E11.29 Type 2 diabetes mellitus with other diabetic kidney complication (principal); R80.9 Proteinuria, unspecified; E78.5 Hyperlipidemia, unspecified
CPT/HCPCS: 36415; 80061; 83036; 84450; 84460

== ENCOUNTER 2024-07-22 11:53 | Outpatient (AMB) | payer OTHER, SELFPAY ==
[2024-07-22 12:02] VITALS: BP 122/80; PULSE 92; O2SAT 96; BMI 32.1
--- NOTE | 2024-07-22 12:02 | A.OFFPC_ITS ---
Vital Signs 07/22/24 12:02 Height 5 ft 11 in Weight 230 lb BMI 32.1 BP 122/80 Blood Pressure Location Rt brachial Position Sitting Pulse 92 Pulse Source Pulse Oximeter Pulse Oximetry (%) 96 Oxygen Delivery Method Room Air Intake Visit Reasons: Transfer from [facility]/ Intake Note: Pt is here today to establish care transferring for [facility]. Pt mentions Rt toe nail being black for awhile. Allergies lisinopril Adverse Reaction (Unknown, Verified 07/22/24 12:26) cough Medication List - Last Reconciled 07/22/24 by Shae Machado MD atorvastatin 20 mg PO DAILY chlorthalidone 25 mg PO DAILY 90 days empagliflozin (Jardiance) 25 mg PO QAM fenofibric acid (choline) (Trilipix) 45 mg PO BEDTIME irbesartan 300 mg PO DAILY metformin ER 1,000 mg (2 x 500 mg) PO BID metoprolol succinate ER 50 mg PO DAILY Tobacco use date assessed: 07/22/24 Dental Screening Dental Screen Date: 07/22/24 Did you have a dental visit in the last 12 months?: Yes Did you have a dental problem in the last 6 months where you did not have access to dental care?: No Was dental information given to patient?: Patient has dentist HPI Transfer from [facility]/ HPI Details 49-year-old male with history dyslipidem ia, diabetes mellitus type 2, hypertension, here today to establish care with another PCP. He currently takes Jardiance 25 mg but takes it 2 hours after breakfast, and has been taking his metformin twice a day 1000 mg per tablet. Admits to being noncompliant with diet lately and has not been exercising regularly. Latest fasting labs showed improvement in diabetes control but not yet within normal limits, at 8.9%. Fasting lipids are within normal limits except for elevated triglycerides and low HDL cholesterol. [facility], last exam was in 08/29/2023 which showed presence of nonproliferative retinopathy in both eyes, due for a recheck again later this year Has been referred to [facility], patient has to call and schedule appointment Patient due for colon cancer screening, no family history of colon cancer, wants to do Cologuard test [facility] Medical History (Updated 07/22/24 @ 12:52 by Shae Machado MD) Diabetes mellitus with mild nonproliferative retinopathy Essential hypertension Mixed dyslipidemia Diabetes mellitus with hyperglycemia, without long-term current use of insulin Diabetes mellitus with microalbuminuria, without long-term current use of insulin Cellulitis Hyperlipidemia Surgical History History of nasal surgery History of vasectomy Family History Father HTN (hypertension) Diabetes mellitus Mother No problems noted. Brother No problems noted. Son No problems noted. Daughter No problems noted. Social History Housing: Apartment Alcohol intake: never Patient Tobacco Use Status: Never used Tobacco e-Cigarette/Vaping Use: Never Used service: No Current occupational status: employed Cognitive needs: No Hearing needs: No Vision needs: Yes Questionnaire PHQ-9 Over the last 2 weeks, how often have you been bothered by any of the following problems? 1. Little interest or pleasure in doing things: not at all 2. Feeling down, depressed, or hopeless: not at all 3. Trouble falling or staying asleep, or sleeping too much: not at all 4. Feeling tired or having little energy: not at all 5. Poor appetite or overeating: not at all 6. Feeling bad about yourself - or that you are a failure or have let yourself or your family down: not at all 7. Trouble concentrating on things, such as reading the newspaper or watching television: not at all 8. Moving or speaking so slowly that other people could have noticed. Or the opposite - being so fidgety or restless that you have been moving around a lot more than usual: not at all 9. Thoughts that you would be better off or of hurting yourself in some way: not at all Total score: 0 Depression Screening Interpretation: Negative Depression Screening Done: Yes 59141 - PHQ-9 Billing: Yes Source: Developed by Drs. Gonzalez Hinojosa, Nazanin Mccray, Bharat Hayes and colleagues, with an educational josh from [employer]. Thrive Questionnaire Date Thrive assessed: 07/22/24 I am a: Patient What is your living situation today?: I have a steady place to live Within the past 12 months, did the food you bought not last and you didn't have the money to get more?: Never true Within the past 12 months, did you worry whether your food would run out before you got money to buy more?: Never true Do you have trouble paying for medicines?: No Do you have trouble getting transportation to medical appointments?: No Do you have trouble paying your heating and electricity bill?: No Do you have trouble taking care of your child, family member or friend?: No Do you have trouble with day-to-day activities such as bathing, preparing meals, shopping, managing finances, etc.?: No Are you currently unemployed and looking for a job?: No Are you interested in more education?: I choose not to answer this question Please select the resources that you would like help with: None Currently or been in a relationship where the following occur: No concerns reported THRIVE Score: 0 AUDIT C Alcohol Use Questionnaire (AUDIT-C) 1. How often do you have a drink containing alcohol?: Never 2. How many drinks containing alcohol do you have on a typical day when you are drinking?: 1 or 2 3. How often do you have six or more drinks on one occasion?: Never Total Score: 0 Score Reviewed/Action Taken: Yes FESTUS-7 AMB Questionnaire FESTUS-7 Date FESTUS - 7 assessed: 07/22/24 Feeling nervous, anxious, or on edge: 0 = Not at all Not being able to stop or control worryin = Not at all Worrying too much about different things: 0 = Not at all Trouble relaxin = Not at all Being so restless that it is hard to sit still: 0 = Not at all Becoming easily annoyed or irritable: 0 = Not at all Feeling afraid as if something awful might happen: 0 = Not at all Total FESTUS-7 score (0-4 normal; 5-9 mild; 10-14 moderate; 15-21 severe): 0 Source: Developed by Drs. Gonzalez Hinojosa, Nazanin Mccray, Bharat Hayes and colleagues, with an educational josh from [employer]. FESTUS-7 Assessment Billing FESTUS-7 Assessment Tool: FESTUS-7 Assessment 80787 Review of Systems Const All systems reviewed & are unremarkable except as noted in HPI and below Denies headache(s) Eyes Details: Goes to [facility] for his diabetes retinopathy screening ENT Denies dizziness and Denies headache(s) Card Denies chest pain and Denies dyspnea Resp Denies dyspnea GI Denies diarrhea, Denies nausea and Denies vomiting Reports no additional complaints Musc Reports no additional complaints Skin/Breast Denies lesions and Denies rash Neuro Denies dizziness and Denies headache(s) Psych Reports no additional complaints Endo Denies polydipsia and Denies polyuria David/Lymph Reports no additional complaints Aller/Immun Reports no additional complaints Physical exam (Primary Care) Vital Signs: Last Vital Signs Pulse 92 07/22/24 12:02 BP 122/80 07/22/24 12:02 Pulse Ox 96 07/22/24 12:02 Oxygen Delivery Method Room Air 07/22/24 12:02 BMI result Body Mass Index 32.1 Tobacco/Smoking Status: Tobacco use Status Tobacco use date assessed 07/22/24 07/22/24 12:03 Patient Tobacco Use Status Never used Tobacco 07/22/24 12:03 e-Cigarette/Vaping Use Never Used 07/22/24 12:03 PHQ-9: PHQ-9 Score PHQ-9: Total score 0 07/22/24 12:55 Depression Screening Interpretation: Negative Thrive Assessment: Date of Thrive Assessment Date Thrive assessed 07/22/24 07/22/24 12:03 Currently or been in a relationship where the following occur: No concerns reported Const General: no acute distress and alert Orientation/consciousness: patient oriented x3 HENMT Ears: external ears normal, TM's normal bilaterally and EAC's normal General nose exam: Normal external nose present Mouth: Normal oral and palatal mucosa present, oropharynx normal and moist mucous membranes Eyes General: appearance normal, both eyes and all related structures Conjunctivae: conjunctivae normal Sclerae: sclerae normal Pupils: Equal, round and reactive pupils present EOM: EOMs intact bilaterally Neck Neck: Yes full ROM, Yes no lymphadenopathy and Yes supple Resp Effort & Inspection: normal respiratory effort and able to speak in complete sentences Auscultation: clear to auscultation bilaterally Cardio Rate: regular rate Rhythm: regular rhythm Heart sounds: S1 normal heart sound present and S2 normal heart sound present GI Palpation (GI): Soft to palpation, nontender and no masses Auscultation: normal bowel sounds Back/Spine/Pelvis Back: No back tenderness Skin Other: Hyperpigmented toenail right 2nd toe General skin exam: no rashes or lesions noted Neuro General: patient oriented x3, gait normal, tone normal, moves all extremities, Normal light touch and pain sensation and no focal motor deficits Cranial nerves: Yes CN's II-XII intact bilaterally and Yes Equal, round and reactive pupils present Cognition (Neuro): normal cognition Extrem General: Yes full ROM, Yes no joint enlargement, Yes no clubbing, cyanosis or edema and Yes no calf tenderness Psych Appearance: grossly normal and well kempt Mental Status: mental status grossly normal Speech and movement: Normal speech and movement present Affect: normal affect Attitude: cooperative Thought process: Normal thought process present Thought content: Normal thought content present Results Reviewed Results Reviewed: Laboratory Tests 01/07/24 07/21/24 08:39 07:56 Estimat Average Glucose 209 Hgb A1c (Clinic) 9.7 H Hemoglobin A1c % 8.9 H Name: Armando Goldstein Age/Sex: 49/M : 1975 Unit#: [id number] Attend Dr: Shae Machado MD Re07/21/24 Status: DEP REF Location: [facility] Disch: SPEC : [id number] AJAY: 07/21/24 STATUS: COMP REQ : [id number] RECD: 07/21/24-[address]: Shae Machado MD COMP: 07/21/241048 ENTERED: 07/21/[address]: ORDERED: AST, ALT, Lipid Panel Test Result Flag Reference AST (GOT) 34 5-37 U/L ALT (GPT) 38 0-40 U/L Triglyceride 327 H <150 mg/dL Desirable Triglyceride: less than 150 mg/dL Borderline High Triglyceride 150-199 mg/dL High Triglyceride: 200-499 mg/dL Very High Triglyceride: greater than or equal to 5OO mg/dL Cholesterol 135 <200 mg/dL Desirable Cholesterol: less than 200 mg/dL Borderline High Cholesterol: 200-239 mg/dL High Cholesterol: greater than 239 mg/dL LDL Calculated 41 <100 mg/dL Desirable LDL: less than 100 mg/dL Near Optimal/Above Optimal LDL: 110-129 mg/dL Borderline High LDL: 130-159 mg/dL High LDL: 160-189 mg/dL Very High LDL: greater than or equal to 190 mg/dL HDL 29 L >40 mg/dL Desirable HDL: greater than 40 mg/dL Note: This HDL assay may give artificially low results in patients with liver disease. Laboratory Tests 08/11/23 07:55 Urine Creatinine 122.14 Urine Microalbumin 42.0 Microalb/Creat Ratio 34.3 H Coding Level of Care Code Est Pt Level 4 (14992) Complex EM visit Add On G2211 Diagnoses Diabetes mellitus with hyperglycemia, without long-term current use of insulin E11.65 Mixed dyslipidemia E78.2 Essential hypertension I10 Diabetes mellitus with mild nonproliferative retinopathy E11.3299 Colon cancer screening Z12.11 Additional Codes FESTUS-7 Assessment Billing - FESTUS-7 Assessment Tool: FESTUS-7 Assessment 31411 ([id number]) PHQ-9 - 79891 - PHQ-9 Billing: Yes ([id number]) Assessment & Plan Assessment & Plan (1) Diabetes mellitus with hyperglycemia, without long-term current use of insulin: Code(s): E11.65 - Type 2 diabetes mellitus with hyperglycemia Category: Medical Plan: Continue metformin a 1000 mg twice a day and continue Jardiance 25 mg per tablet to be taken 1 tablet 1 hour before breakfast instead of after. Reinforced importance of following diabetic diet and getting regular exercise. Repeat fasting labs in 3 months. (2) Mixed dyslipidemia: Code(s): E78.2 - Mixed hyperlipidemia Category: Medical Plan: Reviewed recent fasting lipid profile with patient with elevated triglycerides with normal LDL cholesterol . Stressed importance of getting diabetes under control. Continue fenofibric acid 45 mg daily , in addition to adherence to low-cholesterol diet and regular exercise, at least 30 minutes 3 to 4 times a week. Advised patient to make healthy food choices, eat more fruits, vegetables, whole grains, wild caught fish and low-fat dairy. Limit amount of meat and fried or fatty food products, as well as processed foods and fast foods. Follow-up scheduled with repeat fasting lipid panel in 3 months. (3) Essential hypertension: Code(s): I10 - Essential (primary) hypertension Category: Medical Plan: Blood pressure at goal of less than 130/80. Continue with current medication. Reinforced importance of following a low sodium diet, getting regular exercise, and lowering stress levels. (4) Diabetes mellitus with mild nonproliferative retinopathy: Code(s): E11.3299 - Type 2 diabetes mellitus with mild nonproliferative diabetic retinopathy without macular edema, unspecified eye Category: Medical Plan: Compliance with taking medicines stressed including adherence to diet and exercise. (5) Colon cancer screening: Code(s): Z12.11 - Encounter for screening for malignant neoplasm of colon Plan: Ordered earlier Cologuard test, patient instructed on collection of specimen Orders: Orders Hemoglobin A1c 10/11/24 E11.65 - Type 2 diabetes mellitus with hyperglycemia, E78.2 - Mixed hyperlipidemia, I10 - Essential (primary) hypertension Microalbumin, Random (w Creat) 10/11/24 E11.65 - Type 2 diabetes mellitus with hyperglycemia, E78.2 - Mixed hyperlipidemia, I10 - Essential (primary) hypertension Alanine Aminotransferase 10/11/24 E11.65 - Type 2 diabetes mellitus with hyperglycemia, E78.2 - Mixed hyperlipidemia, I10 - Essential (primary) hypertension Aspartate Amino Transferase 10/11/24 E11.65 - Type 2 diabetes mellitus with hyperglycemia, E78.2 - Mixed hyperlipidemia, I10 - Essential (primary) hypertension Basic Metabolic Panel Fasting 10/11/24 E11.65 - Type 2 diabetes mellitus with hyperglycemia, E78.2 - Mixed hyperlipidemia, I10 - Essential (primary) hypertension Lipid Panel 10/11/24 E11.65 - Type 2 diabetes mellitus with hyperglycemia, E78.2 - Mixed hyperlipidemia, I10 - Essential (primary) hypertension Referrals Cologuard Test Z12.11 - Encounter for screening for malignant neoplasm of colon, Z12.12 - Encounter for screening for malignant neoplasm of rectum
== END 2024-07-22 12:56 | disposition home or self-care (01) ==
PROVIDERS: PCP Nurse Practitioner Primary Care; Visit Provider Internal Medicine
DX: E11.65 Type 2 diabetes mellitus with hyperglycemia (principal); E78.2 Mixed hyperlipidemia; I10 Essential (primary) hypertension; E11.3299 Type 2 diabetes mellitus with mild nonproliferative diabetic retinopathy without macular edema, unspecified eye; Z12.11 Encounter for screening for malignant neoplasm of colon

== ENCOUNTER → 2024-07-22 11:53 | Outpatient (BNVA) | payer OTHER, SELFPAY | PROVIDERS: PCP Nurse Practitioner Primary Care; Visit Provider Internal Medicine | DX: E11.65 Type 2 diabetes mellitus with hyperglycemia (principal); E11.3299 Type 2 diabetes mellitus with mild nonproliferative diabetic retinopathy without macular edema, unspecified eye; E78.2 Mixed hyperlipidemia; I10 Essential (primary) hypertension; Z79.84 Long term (current) use of oral hypoglycemic drugs | CPT/HCPCS: 96127 ==

== ENCOUNTER 2024-10-27 09:11 | Outpatient (REF) | payer OTHER, SELFPAY ==
[2024-10-27 10:40] LABS: Estimated Average Glucose 223 mg/dL; Hemoglobin A1C 286.7547 umol/L; Hemoglobin A1c % 9.4 % (<6.0); Total Hemoglobin (HGBA1C) 3636.7948 umol/L
[2024-10-27 10:56] LABS: Alanine Aminotransferase 46 U/L (0-40); Anion Gap 14 (12-20); Aspartate Amino Transferase 31 U/L (5-37); Blood Urea Nitrogen 21 mg/dL (9-16); Calcium 9.1 mg/dL (8.4-10.2); Carbon Dioxide 28 mmol/L (22-29); Chloride 99 mmol/L (96-108); Cholesterol 160 mg/dL (<200); Estimated Glomerular Filt Rate > 60; Glucose Fasting 176 mg/dL (60-99); Glucose Random 175 mg/dL (60-115); HDL Cholesterol 28 mg/dL (>40); Potassium 3.5 mmol/L (3.3-5.1); Sodium 137 mmol/L (135-145); Triglycerides 613 mg/dL (<150)
[2024-10-27 11:02] LABS: Creatinine Urine 77.31 mg/dL; Creatinine Urine 77.64 mg/dL; Total Protein Urine Random 11 mg/dL (<12)
== END 2024-10-27 09:12 | disposition home or self-care (01) ==
LOC: HO.HMGCLDS 09:11
PROVIDERS: PCP Internal Medicine; Referring Provider Internal Medicine Hypertension Specialist; Visit Provider Internal Medicine
DX: R80.9 Proteinuria, unspecified (principal); N05.9 Unspecified nephritic syndrome with unspecified morphologic changes; I10 Essential (primary) hypertension; E78.2 Mixed hyperlipidemia; E11.65 Type 2 diabetes mellitus with hyperglycemia
CPT/HCPCS: 36415; 80048; 80061; 82043; 82570; 83036; 84156; 84450; 84460

== ENCOUNTER 2024-10-28 07:48 | Outpatient (AMB) | payer OTHER, SELFPAY ==
--- NOTE | 2024-10-28 08:04 | A.OFFPC_ITS ---
Vital Signs 10/28/24 08:05 Height 5 ft 11 in Weight 237 lb BMI 33.1 BP 130/70 Blood Pressure Location Rt brachial Position Sitting Respiration 15 Pulse 98 Pulse Source Pulse Oximeter Temp 98.1 F Temp Source Oral Pulse Oximetry (%) 98 Oxygen Delivery Method Room Air Intake Visit Reasons: 3 months f/up Intake Note: Pt is here today for his 3mo. f/u Allergies lisinopril Adverse Reaction (Unknown, Verified 10/28/24 08:22) cough Medication List - Last Reconciled 10/28/24 by Shae Machado MD atorvastatin 20 mg PO DAILY chlorthalidone 25 mg PO DAILY 90 days empagliflozin (Jardiance) 25 mg PO QAM fenofibric acid (choline) (Trilipix) 45 mg PO BEDTIME irbesartan 300 mg PO DAILY metformin ER 1,000 mg (2 x 500 mg) PO BID metoprolol succinate ER 50 mg PO DAILY Tobacco use date assessed: 10/28/24 Dental Screening Dental Screen Date: 10/28/24 Did you have a dental visit in the last 12 months?: Yes Did you have a dental problem in the last 6 months where you did not have access to dental care?: Yes Was dental information given to patient?: Patient has dentist HPI 3 months f/up HPI Details 49-year-old male with history of diabete s mellitus with mild nonproliferative retinopathy, hypertension and dyslipidemia, here today for his follow-up. Has been taking his medications as directed but has been poorly compliant with diet and nor exercise at all this past few months per patient. Complains of urinary frequency and increased thirst as well as constipation . Has been taking papaya tablets which does not afford any help. He had a Cologuard test done which came back negative. Overdue for his diabetes retinopathy screening, last appointment at [facility] was in 08/24/2023 Recent fasting labs showed A1c at 9.4%, with fasting lipids showed triglycerides at 613 mg/dL, LDL cholesterol unable to be calculated and low good cholesterol urine microalbuminuria is elevated at 36 . Blood pressure however stable and controlled on present treatment. FOR[facility], [facility] Medical History Diabetes mellitus with mild nonproliferative retinopathy Essential hypertension Mixed dyslipidemia Diabetes mellitus with hyperglycemia, without long-term current use of insulin Diabetes mellitus with microalbuminuria, without long-term current use of insulin Cellulitis Hyperlipidemia Surgical History History of nasal surgery History of vasectomy Family History Father HTN (hypertension) Diabetes mellitus Mother No problems noted. Brother No problems noted. Son No problems noted. Daughter No problems noted. Social History Housing: Apartment Alcohol intake: never Patient Tobacco Use Status: Never used Tobacco e-Cigarette/Vaping Use: Never Used service: No Current occupational status: employed Cognitive needs: No Hearing needs: No Vision needs: Yes Questionnaire PHQ-9 Over the last 2 weeks, how often have you been bothered by any of the following problems? 1. Little interest or pleasure in doing things: not at all 2. Feeling down, depressed, or hopeless: not at all 3. Trouble falling or staying asleep, or sleeping too much: not at all 4. Feeling tired or having little energy: not at all 5. Poor appetite or overeating: not at all 6. Feeling bad about yourself - or that you are a failure or have let yourself or your family down: not at all 7. Trouble concentrating on things, such as reading the newspaper or watching television: not at all 8. Moving or speaking so slowly that other people could have noticed. Or the opposite - being so fidgety or restless that you have been moving around a lot more than usual: not at all 9. Thoughts that you would be better off or of hurting yourself in some way: not at all Total score: 0 Depression Screening Interpretation: Negative Depression Screening Done: Yes 33547 - PHQ-9 Billing: Yes Source: Developed by Drs. Gonzalez Hinojosa, Nazanin Mccray, Bharat Hayes and colleagues, with an educational josh from [employer]. Thrive Questionnaire Date Thrive assessed: 10/28/24 I am a: Patient What is your living situation today?: I have a steady place to live Within the past 12 months, did the food you bought not last and you didn't have the money to get more?: Never true Within the past 12 months, did you worry whether your food would run out before you got money to buy more?: Never true Do you have trouble paying for medicines?: No Do you have trouble getting transportation to medical appointments?: No Do you have trouble paying your heating and electricity bill?: No Do you have trouble taking care of your child, family member or friend?: No Do you have trouble with day-to-day activities such as bathing, preparing meals, shopping, managing finances, etc.?: No Are you currently unemployed and looking for a job?: No Are you interested in more education?: Yes Please select the resources that you would like help with: None Currently or been in a relationship where the following occur: No concerns reported THRIVE Score: 0 AUDIT C Alcohol Use Questionnaire (AUDIT-C) 1. How often do you have a drink containing alcohol?: Monthly or less 2. How many drinks containing alcohol do you have on a typical day when you are drinking?: 1 or 2 Total Score: 1 FESTUS-7 AMB Questionnaire FESTUS-7 Date FESTUS - 7 assessed: 10/28/24 Feeling nervous, anxious, or on edge: 0 = Not at all Not being able to stop or control worryin = Not at all Worrying too much about different things: 0 = Not at all Trouble relaxin = Not at all Being so restless that it is hard to sit still: 0 = Not at all Becoming easily annoyed or irritable: 0 = Not at all Feeling afraid as if something awful might happen: 0 = Not at all Total FESTUS-7 score (0-4 normal; 5-9 mild; 10-14 moderate; 15-21 severe): 0 Source: Developed by Drs. Gonzalez Hinojosa, Nazanin Mccray, Bharat Hayes and colleagues, with an educational josh from [employer]. FESTUS-7 Assessment Billing FESTUS-7 Assessment Tool: FESTUS-7 Assessment 07024 Review of Systems Const All systems reviewed & are unremarkable except as noted in HPI and below Denies headache(s) Eyes Details: Goes to [facility] for his diabetes retinopathy screening ENT Denies dizziness and Denies headache(s) Card Denies chest pain and Denies dyspnea Resp Denies dyspnea GI Reports as per HPI and Denies nausea Reports urinary frequency Musc Reports no additional complaints Skin/Breast Denies lesions and Denies rash Neuro Denies dizziness and Denies headache(s) Psych Reports no additional complaints Endo Reports polydipsia and Reports polyuria David/Lymph Reports no additional complaints Aller/Immun Reports no additional complaints Physical exam (Primary Care) Vital Signs: Last Vital Signs Temp 98.1 F 10/28/24 08:05 Pulse 98 10/28/24 08:05 Resp 15 10/28/24 08:05 BP 130/70 10/28/24 08:05 Pulse Ox 98 10/28/24 08:05 Oxygen Delivery Method Room Air 10/28/24 08:05 BMI result Body Mass Index 33.1 Tobacco/Smoking Status: Tobacco use Status Tobacco use date assessed 10/28/24 10/28/24 08:15 Patient Tobacco Use Status Never used Tobacco 10/28/24 08:05 e-Cigarette/Vaping Use Never Used 10/28/24 08:05 PHQ-9: PHQ-9 Score PHQ-9: Total score 0 10/28/24 08:05 Depression Screening Interpretation: Negative Thrive Assessment: Date of Thrive Assessment Date Thrive assessed 10/28/24 10/28/24 08:05 Currently or been in a relationship where the following occur: No concerns reported Const General: no acute distress and alert Orientation/consciousness: patient oriented x3 HENMT Ears: external ears normal, TM's normal bilaterally and EAC's normal General nose exam: Normal external nose present Mouth: Normal oral and palatal mucosa present, oropharynx normal and moist mucous membranes Eyes General: appearance normal, both eyes and all related structures Conjunctivae: conjunctivae normal Sclerae: sclerae normal Pupils: Equal, round and reactive pupils present EOM: EOMs intact bilaterally Neck Neck: Yes full ROM, Yes no lymphadenopathy and Yes supple Resp Effort & Inspection: normal respiratory effort and able to speak in complete sentences Auscultation: clear to auscultation bilaterally Cardio Rate: regular rate Rhythm: regular rhythm Heart sounds: S1 normal heart sound present and S2 normal heart sound present GI Palpation (GI): Soft to palpation, nontender and no masses Auscultation: normal bowel sounds Back/Spine/Pelvis Back: No back tenderness Neuro General: patient oriented x3, gait normal, tone normal, moves all extremities, Normal light touch and pain sensation and no focal motor deficits Cranial nerves: Yes CN's II-XII intact bilaterally and Yes Equal, round and reactive pupils present Cognition (Neuro): normal cognition Extrem General: Yes full ROM, Yes no joint enlargement, Yes no clubbing, cyanosis or edema and Yes no calf tenderness Psych Appearance: grossly normal and well kempt Mental Status: mental status grossly normal Speech and movement: Normal speech and movement present Affect: normal affect Attitude: cooperative Thought process: Normal thought process present Thought content: Normal thought content present Results Reviewed Results Reviewed: Laboratory Tests 10/27/24 09:15 Estimat Average Glucose 223 Hemoglobin A1c % 9.4 H U Random Total Protein 11 Urine Creatinine 77.64 Urine Microalbumin 28.0 Microalb/Creat Ratio 36.0 H daron: Armando Goldstein Age/Sex: 49/M : 1975 Unit#: [id number] Attend Dr: Shae Machado MD Re10/27/24 Status: DEP REF Location: [facility] Disch: SPEC : [id number] AJAY: 10/27/24 STATUS: COMP REQ : [id number] RECD: 10/27/24-[address]: Kervin Bobo MD COMP: 10/27/24 ENTERED: 10/27/[address]: Shae Machado MD ORDERED: BMP, Met Prof Fast, AST, ALT, Lipid Panel Test Result Flag Reference Sodium 137 135-145 mmol/L Potassium 3.5 3.3-5.1 mmol/L CL 99 96-108 mmol/L CO2 28 22-29 mmol/L Gap 14 12-20 BUN 21 H 9-16 mg/dL Creat 1.04 0.5-1.4 mg/dL eGFR > 60 Chronic Kidney Disease: Estimated GFR < 60 mL/min/1.73m2 Severe Kidney Disease: Estimated GFR < 15 mL/min/1.73m2 Glucose, Random 175 H 60-115 mg/dL FBS 176 H 60-99 mg/dL A fasting glucose of 126 mg/dl or greater on more than one occasion is considered diagnostic of diabetes. CA 9.1 8.4-10.2 mg/dL AST (GOT) 31 5-37 U/L ALT (GPT) 46 H 0-40 U/L Triglyceride 613 H <150 mg/dL Desirable Triglyceride: less than 150 mg/dL Borderline High Triglyceride 150-199 mg/dL High Triglyceride: 200-499 mg/dL Very High Triglyceride: greater than or equal to 5OO mg/dL Cholesterol 160 <200 mg/dL Desirable Cholesterol: less than 200 mg/dL Borderline High Cholesterol: 200-239 mg/dL High Cholesterol: greater than 239 mg/dL LDL Calculated Test not performed <100 mg/dL Unable to calculate the LDL. The formula of Friedwald, Abel, and Yamilet is only valid if the triglycerides are less than 400 mg/dl. HDL 28 L >40 mg/dL Coding Level of Care Code Est Pt Level 4 (37261) Complex EM visit Add On G2211 Diagnoses Mixed dyslipidemia E78.2 Essential hypertension I10 Diabetes mellitus with mild nonproliferative retinopathy E11.3299 Diabetes mellitus with microalbuminuria, without long-term current use of insulin E11.29; R80.9 Constipation K59.00 Additional Codes FESTUS-7 Assessment Billing - FESTUS-7 Assessment Tool: FESTUS-7 Assessment 12880 ([id number]) PHQ-9 - 22973 - PHQ-9 Billing: Yes ([id number]) Assessment & Plan Assessment & Plan (1) Mixed dyslipidemia: Code(s): E78.2 - Mixed hyperlipidemia Category: Medical Plan: Discuss recent fasting lab results with patient which showed marked elevation in his triglycerides, continue with fenofibric acid and atorvastatin the same dose, reinforced importance of following low-cholesterol diabetic diet and getting regular exercise. Will repeat another fasting lipid panel in 3 months. (2) Essential hypertension: Code(s): I10 - Essential (primary) hypertension Category: Medical Plan: Blood pressure at goal of less than 130/80. Continue your irbesartan 300 mg daily and metoprolol succinate ER 50 mg daily, together with chlorthalidone 25 mg daily. Reinforced importance of following a low sodium diet, getting regular exercise, and lowering stress levels. (3) Diabetes mellitus with mild nonproliferative retinopathy: Code(s): E11.3299 - Type 2 diabetes mellitus with mild nonproliferative diabetic retinopathy without macular edema, unspecified eye Category: Medical Plan: Recommended adding a GLP 1 agonist but patient would like to try improving diabetes control through diet and exercise in addition to taking his medicines as directed. Stressed importance of following diet regularly and daily exercise. Repeat another hemoglobin A1c in lipids liver enzymes in 3 months and if still on able to achieve better diabetic control will start on a GLP 1 agonist. Patient states that he is up-to-date with his flu vaccine and COVID vaccination as well as pneumonia vaccine. Reminded patient that he is overdue to get his diabetes retinopathy screening., to schedule an appointment with [facility] (4) Diabetes mellitus with microalbuminuria, without long-term current use of insulin: Code(s): E11.29 - Type 2 diabetes mellitus with other diabetic kidney complication; R80.9 - Proteinuria, unspecified Category: Medical Plan: Stressed importance of getting diabetes mellitus under control, has an appointment with Nephrology on 11/18/2024 (5) Constipation: Code(s): K59.00 - Constipation, unspecified Plan: Increase dietary fiber intake, and do daily exercise. Drink plenty of water. Prescription sent for docusate sodium 100 mg per capsule to take 1-2 capsules daily. Orders: Orders Lipid Panel 01/08/25 E11.3299 - Type 2 diabetes mellitus with mild nonproliferative diabetic retinopathy without macular edema, unspecified eye, E78.2 - Mixed hyperlipidemia, I10 - Essential (primary) hypertension Aspartate Amino Transferase 01/08/25 E11.3299 - Type 2 diabetes mellitus with mild nonproliferative diabetic retinopathy without macular edema, unspecified eye, E78.2 - Mixed hyperlipidemia, I10 - Essential (primary) hypertension Alanine Aminotransferase 01/08/25 E11.3299 - Type 2 diabetes mellitus with mild nonproliferative diabetic retinopathy without macular edema, unspecified eye, E78.2 - Mixed hyperlipidemia, I10 - Essential (primary) hypertension Hemoglobin A1c 01/08/25 E11.3299 - Type 2 diabetes mellitus with mild nonproliferative diabetic retinopathy without macular edema, unspecified eye, E78.2 - Mixed hyperlipidemia, I10 - Essential (primary) hypertension Medications: New docusate sodium 100 mg PO DAILY 30 caps 2RF
[2024-10-28 08:05] VITALS: BP 130/70; PULSE 98; RESP 15; TEMP 36.7; O2SAT 98; BMI 33.1
== END 2024-10-28 08:46 | disposition home or self-care (01) ==
PROVIDERS: PCP Internal Medicine; Visit Provider Internal Medicine
DX: E78.2 Mixed hyperlipidemia (principal); I10 Essential (primary) hypertension; E11.3299 Type 2 diabetes mellitus with mild nonproliferative diabetic retinopathy without macular edema, unspecified eye; E11.29 Type 2 diabetes mellitus with other diabetic kidney complication; R80.9 Proteinuria, unspecified; K59.00 Constipation, unspecified

== ENCOUNTER → 2024-10-28 07:48 | Outpatient (BNVA) | payer OTHER, SELFPAY | PROVIDERS: PCP Internal Medicine; Visit Provider Internal Medicine | DX: E78.2 Mixed hyperlipidemia (principal); I10 Essential (primary) hypertension; E11.3299 Type 2 diabetes mellitus with mild nonproliferative diabetic retinopathy without macular edema, unspecified eye; E11.29 Type 2 diabetes mellitus with other diabetic kidney complication; R80.9 Proteinuria, unspecified; K59.00 Constipation, unspecified | CPT/HCPCS: 96127 ==

== ENCOUNTER 2024-11-18 10:49 | Outpatient (AMB) | payer OTHER, SELFPAY ==
[2024-11-18 10:53] VITALS: BP 118/74; PULSE 96; O2SAT 95; BMI 33.5
--- NOTE | 2024-11-18 10:53 | HO.NEPHOV_ITS ---
Vital Signs 11/18/24 10:53 Height 5 ft 11 in Weight 240 lb BMI 33.5 BP 118/74 Blood Pressure Location Lt brachial Position Sitting Pulse 96 Pulse Source Pulse Oximeter Pulse Oximetry (%) 95 Oxygen Delivery Method Room Air Intake Visit Reasons: Proteinuria/ 1 year FU/ Conf Color Control Operator Required: No Accompanied by: Self / Same As Patient Allergies lisinopril Adverse Reaction (Unknown, Verified 11/18/24 10:55) cough Medication List - Last Reconciled 11/18/24 by Kervin Bobo MD atorvastatin 20 mg PO DAILY chlorthalidone 25 mg PO DAILY 90 days docusate sodium 100 mg PO DAILY empagliflozin (Jardiance) 25 mg PO QAM fenofibric acid (choline) (Trilipix) 45 mg PO BEDTIME irbesartan 300 mg PO DAILY metformin ER 1,000 mg (2 x 500 mg) PO BID metoprolol succinate ER 50 mg PO DAILY HPI Comments Details: Middle aged man with DM since 2021 and HTN and Obesity referred for protienuria Currently on Irbesartan Jardiance was added a month ago USed to weight 250 lbs Lost 20 lbs with diet and exercise- stationary bike 11/18/24 Overall doing well. Gained 10 lbs during heather break [facility] Medical History Diabetes mellitus with mild nonproliferative retinopathy Essential hypertension Mixed dyslipidemia Diabetes mellitus with hyperglycemia, without long-term current use of insulin Diabetes mellitus with microalbuminuria, without long-term current use of insulin Cellulitis Hyperlipidemia Surgical History History of nasal surgery History of vasectomy Family History Father HTN (hypertension) Diabetes mellitus Mother No problems noted. Brother No problems noted. Son No problems noted. Daughter No problems noted. Social History Housing: Apartment Alcohol intake: never Patient Tobacco Use Status: Never used Tobacco e-Cigarette/Vaping Use: Never Used service: No Current occupational status: employed Cognitive needs: No Hearing needs: No Vision needs: Yes Physical Exam Vital Signs: Last Vital Signs Pulse 96 11/18/24 10:53 BP 118/74 11/18/24 10:53 Pulse Ox 95 11/18/24 10:53 Oxygen Delivery Method Room Air 11/18/24 10:53 BMI result Body Mass Index 33.5 Const General: comfortable Nutritional Appearance: well nourished Orientation/consciousness: patient oriented x3 HEENT Head: No normal to inspection Mouth: moist mucous membranes Neck Neck: Yes supple and Yes no JVD Resp Auscultation: clear to auscultation bilaterally and no rales Cardio Jugular venous distension: no JVD Palpation: no palpable S3 and no palpable S4 Heart sounds: no rubs GI Palpation (GI): Soft to palpation and nontender Percussion: No Fluid wave present General: Yes no CVA tenderness Back/Spine/Pelvis Back: no CVA tenderness Skin General skin exam: no rashes or lesions noted Neuro General: patient oriented x3 Extrem General: Yes no pedal edema and No clubbing Results Reviewed Nephrology Results: Sodium 137 mmol/L (135-145) 10/27/24 Potassium 3.5 mmol/L (3.3-5.1) 10/27/24 Chloride 99 mmol/L (96-108) 10/27/24 Carbon Dioxide 28 mmol/L (22-29) 10/27/24 BUN 21 mg/dL (9-16) H 10/27/24 Creatinine 1.04 mg/dL (0.5-1.4) 10/27/24 Calcium 9.1 mg/dL (8.4-10.2) 10/27/24 Urine Creatinine 77.31 mg/dL 10/27/24 Assessment & Plan Assessment & Plan (1) Microalbuminuria: Comment: Most likely due to the combination diabetic kidney disease and obesity. Code(s): R80.9 - Proteinuria, unspecified Category: Medical Plan: Maintain A1C < 7% Continue Irbesartan for renal protection Will benefit from SGLT-2 inhibitor Discussed weight loss Increase physical activity Low salt diet Increase PO fluid intake (2) Essential hypertension: Code(s): I10 - Essential (primary) hypertension Category: Medical (3) Diabetes mellitus with mild nonproliferative retinopathy: Code(s): E11.3299 - Type 2 diabetes mellitus with mild nonproliferative diabetic retinopathy without macular edema, unspecified eye Category: Medical Plan As above Orders: Orders Basic Metabolic Panel 1 Year E11.3298 - Type 2 diabetes mellitus with mild non proliferative diabetic retinopathy without macular edema, unspecified eye, I10 - Essential (primary) hypertension Creatinine Urine 1 Year E11.3298 - Type 2 diabetes mellitus with mild nonproliferative diabetic retinopathy without macular edema, unspecified eye, I10 - Essential (primary) hypertension Total Protein Urine Random 1 Year E11.3298 - Type 2 diabetes mellitus with mild nonproliferative diabetic retinopathy without macular edema, unspecified eye, I10 - Essential (primary) hypertension UA and rflx microscopic 1 Year E11.3298 - Type 2 diabetes mellitus with mild nonproliferative diabetic retinopathy without macular edema, unspecified eye, I10 - Essential (primary) hypertension Coding Level of Care Code Est Pt Level 4 (41376) Diagnoses Microalbuminuria R80.9 Essential hypertension I10 Diabetes mellitus with mild nonproliferative retinopathy
== END 2024-11-18 11:03 | disposition home or self-care (01) ==
LOC: HO.HKA 10:50
PROVIDERS: PCP Nurse Practitioner Primary Care; Visit Provider Internal Medicine Hypertension Specialist
DX: R80.9 Proteinuria, unspecified (principal); I10 Essential (primary) hypertension; E11.3299 Type 2 diabetes mellitus with mild nonproliferative diabetic retinopathy without macular edema, unspecified eye
CPT/HCPCS: 99214

== ENCOUNTER → 2024-11-18 10:49 | Outpatient (BNVA) | payer OTHER, SELFPAY | PROVIDERS: PCP Nurse Practitioner Primary Care; Visit Provider Internal Medicine Hypertension Specialist ==

== ENCOUNTER 2025-01-24 08:07 | Outpatient (REF) | payer OTHER, SELFPAY ==
[2025-01-24 11:39] LABS: Alanine Aminotransferase 45 U/L (0-40); Aspartate Amino Transferase 34 U/L (5-37); Cholesterol 176 mg/dL (<200); HDL Cholesterol 25 mg/dL (>40); Triglycerides 766 mg/dL (<150)
[2025-01-24 11:43] LABS: Estimated Average Glucose 226 mg/dL; Hemoglobin A1C 283.3305 umol/L; Hemoglobin A1c % 9.5 % (<6.0); Total Hemoglobin (HGBA1C) 3543.4306 umol/L
== END 2025-01-24 08:08 | disposition home or self-care (01) ==
LOC: HO.HMGCLDS 08:07
PROVIDERS: PCP Internal Medicine; Visit Provider Internal Medicine
DX: E11.3299 Type 2 diabetes mellitus with mild nonproliferative diabetic retinopathy without macular edema, unspecified eye (principal); I10 Essential (primary) hypertension; E78.2 Mixed hyperlipidemia; Z13.1 Encounter for screening for diabetes mellitus
CPT/HCPCS: 36415; 80061; 83036; 84450; 84460

== ENCOUNTER 2025-01-26 07:38 | Outpatient (AMB) | payer OTHER, SELFPAY ==
--- NOTE | 2025-01-26 08:13 | A.OFFPC_ITS ---
Vital Signs 01/26/25 08:17 Height 5 ft 11 in Weight 237 lb BMI 33.1 BP 104/72 Blood Pressure Location Rt brachial Position Sitting Respiration 15 Pulse 88 Pulse Source Pulse Oximeter Temp 98.7 F Temp Source Oral Pulse Oximetry (%) 96 Oxygen Delivery Method Room Air Intake Visit Reasons: 3 months f/up Intake Note: Pt is here today for his 3mo. f/u Allergies lisinopril Adverse Reaction (Unknown, Verified 02/02/25 21:53) cough Medication List - Last Reconciled 02/02/25 by Shae Machado MD atorvastatin 20 mg PO DAILY chlorthalidone 25 mg PO DAILY 90 days docusate sodium 100 mg PO DAILY fenofibric acid (choline) (Trilipix) 45 mg PO BEDTIME irbesartan 300 mg PO DAILY Jardiance (empagliflozin) 25 mg PO QAM 30 days NS metformin ER 1,000 mg (2 x 500 mg) PO BID metoprolol succinate ER 50 mg PO DAILY Mounjaro (tirzepatide) 2.5 mg (0.5 mL) subcut QWEEK NS Tobacco use date assessed: 01/26/25 Dental Screening Dental Screen Date: 01/26/25 Did you have a dental visit in the last 12 months?: Yes Did you have a dental problem in the last 6 months where you did not have access to dental care?: No Was dental information given to patient?: Patient has dentist HPI 3 months f/up HPI Details - The patient is a 49-year-old male wit h history of Type 2 Diabetes Mellitus, here for his folow up visit. - The main concern is the worsening of k idney function, highlighted by increased proteinuria detected annually in urine collections. - Management of blood sugar levels has b een suboptimal despite the use of metformin and Jardiance, and the patient struggles with medication-induced constipation. - The patient also suffers from hyperten jailene and dyslipidemia, with recent assessments revealing elevated triglycerides and early signs of diabetic retinopathy, stressing the need for improved glycemic and lipid control. - Structural eye changes have also been noted, reinforcing the imperative need f or immediate interventions to prevent further complication progression. [facility] Medical History (Updated 01/26/25 @ 09:22 by Shae Machado MD) Diabetes mellitus with mild nonproliferative retinopathy Essential hypertension Mixed dyslipidemia Diabetes mellitus with microalbuminuria, without long-term current use of insulin Cellulitis Surgical History History of nasal surgery History of vasectomy Family History Father HTN (hypertension) Diabetes mellitus Mother No problems noted. Brother No problems noted. Son No problems noted. Daughter No problems noted. Social History Housing: Apartment Alcohol intake: never Patient Tobacco Use Status: Never used Tobacco e-Cigarette/Vaping Use: Never Used service: No Current occupational status: employed Cognitive needs: No Hearing needs: No Vision needs: Yes Questionnaire PHQ-9 Over the last 2 weeks, how often have you been bothered by any of the following problems? Depression Screening Interpretation: Negative Depression Screening Done: Yes Source: Developed by Drs. Gonzalez Hinojosa, Nazanin Mccray, Bharat Hayes and colleagues, with an educational josh from [employer]. Thrive Questionnaire Date Thrive assessed: 10/28/24 I am a: Patient What is your living situation today?: I have a steady place to live Within the past 12 months, did the food you bought not last and you didn't have the money to get more?: Never true Within the past 12 months, did you worry whether your food would run out before you got money to buy more?: Never true Do you have trouble paying for medicines?: No Do you have trouble getting transportation to medical appointments?: No Do you have trouble paying your heating and electricity bill?: No Do you have trouble taking care of your child, family member or friend?: No Do you have trouble with day-to-day activities such as bathing, preparing meals, shopping, managing finances, etc.?: No Are you currently unemployed and looking for a job?: No Are you interested in more education?: Yes Please select the resources that you would like help with: None Currently or been in a relationship where the following occur: No concerns reported THRIVE Score: 0 FESTUS-7 AMB Questionnaire FESTUS-7 Date FESTUS - 7 assessed: 10/28/24 Source: Developed by Drs. Gonzalez Hinojosa, Nazanin Mccray, Bharat Hayes and colleagues, with an educational josh from [employer]. Review of Systems Const All systems reviewed & are unremarkable except as noted in HPI and below Denies headache(s) Eyes Details: Goes to [facility] for his diabetes retinopathy screening ENT Denies dizziness and Denies headache(s) Card Denies chest pain and Denies dyspnea Resp Denies dyspnea GI Reports as per HPI Reports urinary frequency Musc Reports no additional complaints Skin/Breast Denies lesions and Denies rash Neuro Denies dizziness and Denies headache(s) Psych Reports no additional complaints Endo Reports polydipsia and Reports polyuria David/Lymph Reports no additional complaints Aller/Immun Reports no additional complaints Physical exam (Primary Care) Vital Signs: Last Vital Signs Temp 98.7 F 01/26/25 08:17 Pulse 88 01/26/25 08:17 Resp 15 01/26/25 08:17 BP 104/72 01/26/25 08:17 Pulse Ox 96 01/26/25 08:17 Oxygen Delivery Method Room Air 01/26/25 08:17 BMI result Body Mass Index 33.1 Tobacco/Smoking Status: Tobacco use Status Tobacco use date assessed 01/26/25 01/26/25 08:15 Patient Tobacco Use Status Never used Tobacco 01/26/25 08:15 e-Cigarette/Vaping Use Never Used 01/26/25 08:15 Depression Screening Interpretation: Negative Thrive Assessment: Date of Thrive Assessment Date Thrive assessed 10/28/24 01/26/25 08:15 Currently or been in a relationship where the following occur: No concerns reported Const General: no acute distress and alert Orientation/consciousness: patient oriented x3 HENMT Ears: external ears normal, TM's normal bilaterally and EAC's normal General nose exam: Normal external nose present Mouth: Normal oral and palatal mucosa present, oropharynx normal and moist mucous membranes Eyes General: appearance normal, both eyes and all related structures Conjunctivae: conjunctivae normal Sclerae: sclerae normal Pupils: Equal, round and reactive pupils present EOM: EOMs intact bilaterally Neck Neck: Yes full ROM, Yes no lymphadenopathy and Yes supple Resp Effort & Inspection: normal respiratory effort and able to speak in complete sentences Auscultation: clear to auscultation bilaterally Cardio Rate: regular rate Rhythm: regular rhythm Heart sounds: S1 normal heart sound present and S2 normal heart sound present GI Palpation (GI): Soft to palpation, nontender and no masses Auscultation: normal bowel sounds Back/Spine/Pelvis Back: No back tenderness Neuro General: patient oriented x3, gait normal, tone normal, moves all extremities, Normal light touch and pain sensation and no focal motor deficits Cranial nerves: Yes CN's II-XII intact bilaterally and Yes Equal, round and reactive pupils present Cognition (Neuro): normal cognition Extrem General: Yes full ROM, Yes no joint enlargement, Yes no clubbing, cyanosis or edema and Yes no calf tenderness Psych Appearance: grossly normal and well kempt Mental Status: mental status grossly normal Speech and movement: Normal speech and movement present Affect: normal affect Attitude: cooperative Thought process: Normal thought process present Thought content: Normal thought content present Results Reviewed Results Reviewed: Name: Armando Goldstein Age/Sex: 49/M : 1975 Unit#: [id number] Attend Dr: Shae Machado MD Re01/24/25 Status: DEP REF Location: [facility] Disch: SPEC : [id number] AJAY: 01/24/25 STATUS: COMP REQ : [id number] RECD: 01/24/[address]: Shae Machado MD COMP: 01/24/25 ENTERED: 01/24/25 [facility] DR: ORDERED: Hgb A1c Test Result Flag Reference A1c % 9.5 H <6.0 % Hemoglobin A1C Reference Range Adults: 4.8 - 6.0 % Non diabetic: < 6.0 % Goal: < 7.0 % Additional Action Suggested: > 8.0 % Note: Hemoglobin A1c results are invalid for patients with abnormal amounts of HbF. Blood transfusions may impact the HbA1c concentration in the patient sample. Est. Avg. Gluc 226 mg/dL eAG = Estimated average glucose which is %A1C expressed as average glucose, using the formula of the [id number] Average Glucose study (ADAG), Diabetes Care, Vol.31,#8, 2007 Name: Armando Goldstein Age/Sex: 49/M : 1975 Unit#: [id number] Attend Dr: Shae Machado MD Re01/24/25 Status: DEP REF Location: [facility] Disch: SPEC : [id number] AJAY: 01/24/25 STATUS: COMP REQ : [id number] RECD: 01/24/25-[address]: Shae Machado MD COMP: 01/24/25 ENTERED: 01/24/25 [facility] DR: ORDERED: AST, ALT, Lipid Panel Test Result Flag Reference AST (GOT) 34 5-37 U/L ALT (GPT) 45 H 0-40 U/L Triglyceride 766 H <150 mg/dL Desirable Triglyceride: less than 150 mg/dL Borderline High Triglyceride 150-199 mg/dL High Triglyceride: 200-499 mg/dL Very High Triglyceride: greater than or equal to 5OO mg/dL Cholesterol 176 <200 mg/dL Desirable Cholesterol: less than 200 mg/dL Borderline High Cholesterol: 200-239 mg/dL High Cholesterol: greater than 239 mg/dL LDL Calculated Test not performed <100 mg/dL Unable to calculate the LDL. The formula of Friedwald, Abel, and Yamilet is only valid if the triglycerides are less than 400 mg/dl. HDL 25 L >40 mg/dL Desirable HDL: greater than 40 mg/dL Laboratory Tests 10/27/24 09:15 Microalb/Creat Ratio 36.0 H Coding Level of Care Code Est Pt Level 4 (13908) Complex EM visit Add On G2211 Diagnoses Diabetes mellitus with microalbuminuria, without long-term current use of insulin E11.29; R80.9 Diabetes mellitus with hyperglycemia, without long-term current use of insulin E11.65 Diabetes mellitus with mild nonproliferative retinopathy E11.3299 Mixed dyslipidemia E78.2 Essential hypertension I10 Assessment & Plan Assessment & Plan (1) Diabetes mellitus with microalbuminuria, without long-term current use of insulin: Code(s): E11.29 - Type 2 diabetes mellitus with other diabetic kidney complication; R80.9 - Proteinuria, unspecified Category: Medical (2) Diabetes mellitus with hyperglycemia, without long-term current use of insulin: Code(s): E11.65 - Type 2 diabetes mellitus with hyperglycemia Category: Medical (3) Diabetes mellitus with mild nonproliferative retinopathy: Code(s): E11.3299 - Type 2 diabetes mellitus with mild nonproliferative diabetic retinopathy without macular edema, unspecified eye Category: Medical (4) Mixed dyslipidemia: Code(s): E78.2 - Mixed hyperlipidemia Category: Medical (5) Essential hypertension: Code(s): I10 - Essential (primary) hypertension Category: Medical Plan I discussed with the patient the initiation of Mounjaro due to inadequate control with current therapies and emphasized the benefits of this injectable therapy, including appetite suppression and potential weight loss, which are crucial for overall diabetes management. Detailed instructions were provided for self-administration of Mounjaro, four pens with three refills, to be reevaluated in April. The overarching goal is to achieve better glycemic control to protect kidney function and manage hypertension and dyslipidemia more effectively. Potential gastrointestinal side effects were reviewed, and prevention strategies such as avoiding rich foods on injection day were advised. Continue with your irbesartan 300 mg daily, chlorthalidone 25 mg daily l and metoprolol succinate ER 50 mg once a day. Continued on atorvastatin 20 mg daily for control of lipids Follow-up is crucial, and I scheduled a review of blood glucose levels in three months, underscoring the importance of lifestyle modifications. - Start Mounjaro 2.5 mg weekly and rotate injection sites. - Continue taking metformin and Jardiance, as discussed. - Monitor blood glucose regularly and keep track of levels. - Shift all prescriptions to [facility] ([facility] pharmacy. - Avoid consuming high-fat meals on injection days. - Follow a low-fat, low-sugar diet, including reducing creamer use. - Schedule regular eye exams to monitor for diabetic retinopathy. - Return in April for reevaluation of blood glucose and kidney function. Orders: Orders Lipid Panel 04/10/25 E11.29 - Type 2 diabetes mellitus with other diabetic kidney complication, E11.3299 - Type 2 diabetes mellitus with mild nonproliferative diabetic retinopathy without macular edema, unspecified eye, E11.65 - Type 2 diabetes mellitus with hyperglycemia, E78.2 - Mixed hyperlipidemia, I10 - Essential (primary) hypertension, R80.9 - Proteinuria, unspecified Alanine Aminotransferase 04/10/25 E11.29 - Type 2 diabetes mellitus with other diabetic kidney complication, E11.3299 - Type 2 diabetes mellitus with mild nonproliferative diabetic retinopathy without macular edema, unspecified eye, E11.65 - Type 2 diabetes mellitus with hyperglycemia, E78.2 - Mixed hyperlipidemia, I10 - Essential (primary) hypertension, R80.9 - Proteinuria, unspecified Basic Metabolic Panel Fasting 04/10/25 E11.29 - Type 2 diabetes mellitus with other diabetic kidney complication, E11.3299 - Type 2 diabetes mellitus with mild nonproliferative diabetic retinopathy without macular edema, unspecified eye, E11.65 - Type 2 diabetes mellitus with hyperglycemia, E78.2 - Mixed hyperlipidemia, I10 - Essential (primary) hypertension, R80.9 - Proteinuria, unspecified Hemoglobin A1c 04/10/25 E11.29 - Type 2 diabetes mellitus with other diabetic kidney complication, E11.3299 - Type 2 diabetes mellitus with mild nonproliferative diabetic retinopathy without macular edema, unspecified eye, E11.65 - Type 2 diabetes mellitus with hyperglycemia, E78.2 - Mixed hyperli pidemia, I10 - Essential (primary) hypertension, R80.9 - Proteinuria, unspecified LDL Cholesterol Direct 04/10/25 E11.29 - Type 2 diabetes mellitus with other diabetic kidney complication, E11.3299 - Type 2 diabetes mellitus with mild nonproliferative diabetic retinopathy without macular edema, unspecified eye, E11.65 - Type 2 diabetes mellitus with hyperglycemia, E78.2 - Mixed hyperlipidemia, I10 - Essential (primary) hypertension, R80.9 - Proteinuria, unspecified Aspartate Amino Transferase 04/10/25 E11.29 - Type 2 diabetes mellitus with other diabetic kidney complication, E11.3299 - Type 2 diabetes mellitus with mild nonproliferative diabetic retinopathy without macular edema, unspecified eye, E11.65 - Type 2 diabetes mellitus with hyperglycemia, E78.2 - Mixed hyperlipidemia, I10 - Essential (primary) hypertension, R80.9 - Proteinuria, unspecified Medications: New Mounjaro (tirzepatide) for 4 weeks 2.5 mg (0.5 mL) subcut QWEEK 2 mL 3RF NS E11.29 - Type 2 diabetes mellitus with other diabetic kidney complication, E11.3299 - Type 2 diabetes mellitus with mild nonproliferative diabetic retinopathy without macular edema, unspecified eye, E11.65 - Type 2 diabetes mellitus with hyperglycemia, R80.9 - Proteinuria, unspecified Changed From empagliflozin (Jardiance) 25 mg PO QAM 90 tabs 0RF To Jardiance (empagliflozin) 25 mg PO QAM 30 days 30 tabs 6RF NS Refilled docusate sodium 100 mg PO DAILY 30 caps 5RF
[2025-01-26 08:17] VITALS: BP 104/72; PULSE 88; RESP 15; TEMP 37.1; O2SAT 96; BMI 33.1
== END 2025-01-26 09:14 | disposition home or self-care (01) ==
LOC: HO.HMCC 07:39
PROVIDERS: PCP Internal Medicine; Visit Provider Internal Medicine
DX: E11.29 Type 2 diabetes mellitus with other diabetic kidney complication (principal); R80.9 Proteinuria, unspecified; E11.65 Type 2 diabetes mellitus with hyperglycemia; E11.3299 Type 2 diabetes mellitus with mild nonproliferative diabetic retinopathy without macular edema, unspecified eye; E78.2 Mixed hyperlipidemia; I10 Essential (primary) hypertension

== ENCOUNTER → 2025-01-26 07:38 | Outpatient (BNVA) | payer OTHER, SELFPAY | PROVIDERS: PCP Internal Medicine; Visit Provider Internal Medicine ==

== ENCOUNTER 2025-05-09 08:45 | Outpatient (REF) | payer OTHER, SELFPAY ==
[2025-05-09 11:17] LABS: Hemoglobin A1C 237.3510 umol/L; Total Hemoglobin (HGBA1C) 3553.7343 umol/L
[2025-05-09 11:21] LABS: Alanine Aminotransferase 36 U/L (0-40); Anion Gap 16 (12-20); Aspartate Amino Transferase 33 U/L (5-37); Blood Urea Nitrogen 24 mg/dL (9-16); Calcium 9.1 mg/dL (8.4-10.2); Carbon Dioxide 27 mmol/L (22-29); Chloride 99 mmol/L (96-108); Cholesterol 113 mg/dL (<200); Estimated Glomerular Filt Rate > 60; HDL Cholesterol 27 mg/dL (>40); Potassium 3.3 mmol/L (3.3-5.1); Sodium 139 mmol/L (135-145); Triglycerides 327 mg/dL (<150)
== END 2025-05-09 08:46 | disposition home or self-care (01) ==
LOC: HO.HMGCLDS 08:45
PROVIDERS: PCP Internal Medicine; Visit Provider Internal Medicine
DX: E11.65 Type 2 diabetes mellitus with hyperglycemia (principal); E11.3299 Type 2 diabetes mellitus with mild nonproliferative diabetic retinopathy without macular edema, unspecified eye; E11.29 Type 2 diabetes mellitus with other diabetic kidney complication; R80.9 Proteinuria, unspecified; E78.2 Mixed hyperlipidemia; I10 Essential (primary) hypertension
CPT/HCPCS: 36415; 80048; 80061; 83036; 83721; 84450; 84460

== ENCOUNTER 2025-05-19 10:36 | Outpatient (AMB) | payer OTHER, SELFPAY ==
[2025-05-19 10:53] VITALS: BP 124/70; PULSE 98; RESP 16; TEMP 36.8; O2SAT 99; BMI 32.1
--- NOTE | 2025-05-19 10:53 | MHC.PC.OV ---
Vital Signs 05/19/25 10:53 Height 5 ft 11 in Weight 230 lb BMI 32.1 BP 124/70 Blood Pressure Location Lt brachial Position Sitting Respiration 16 Pulse 98 Pulse Source Pulse Oximeter Temp 98.2 F Temp Source Oral Pulse Oximetry (%) 99 Oxygen Delivery Method Room Air Intake Visit Reasons: 3 months f/up Intake Note: Pt is here today for his 3mo. f/u Allergies lisinopril Adverse Reaction (Unknown, Verified 05/19/25 11:34) cough Medication List - Last Reconciled 05/19/25 by Shae Machado MD atorvastatin 20 mg PO DAILY chlorthalidone 25 mg PO DAILY docusate sodium 100 mg PO DAILY irbesartan 300 mg PO DAILY Jardiance (empagliflozin) 25 mg PO QAM NS metformin ER 1,000 mg (2 x 500 mg) PO BID metoprolol succinate ER 50 mg PO DAILY Mounjaro (tirzepatide) 2.5 mg (0.5 mL) subcut QWEEK NS Tobacco use date assessed: 05/19/25 Dental Screening Dental Screen Date: 05/19/25 Did you have a dental visit in the last 12 months?: Yes Did you have a dental problem in the last 6 months where you did not have access to dental care?: No Was dental information given to patient?: Patient has dentist HPI 3 months f/up HPI Details - The patient is a 49-year-old male here today for follow-up on his diabetes mellitus, dyslipidemia and hypertension. - The patient has been experiencing issues with medication coverage due to insurance changes, specifically with the medication Mounjaro, which requires prior authorization under the new insurance plan, [employer]. - The patient is currently taking Jardiance and Metformin only for diabetes management. - The patient reports a decrease in blood sugar levels, with a recent A1c of 8.3, down from 9.5. - The patient has been on Mounjaro for two months, which has contributed to weight loss and improved energy levels. - The patient reports constipation as a side effect of Mounjaro, which is being managed with dietary adjustments and stool softeners. [facility] Medical History Diabetes mellitus with mild nonproliferative retinopathy Essential hypertension Mixed dyslipidemia Diabetes mellitus with microalbuminuria, without long-term current use of insulin Surgical History History of nasal surgery History of vasectomy Family History Father HTN (hypertension) Diabetes mellitus Mother No problems noted. Brother No problems noted. Son No problems noted. Daughter No problems noted. Social History Housing: Apartment Alcohol intake: never Patient Tobacco Use Status: Never used Tobacco e-Cigarette/Vaping Use: Never Used service: No Current occupational status: employed Cognitive needs: No Hearing needs: No Vision needs: Yes Questionnaire PHQ-9 Over the last 2 weeks, how often have you been bothered by any of the following problems? 1. Little interest or pleasure in doing things: not at all 2. Feeling down, depressed, or hopeless: not at all 3. Trouble falling or staying asleep, or sleeping too much: not at all 4. Feeling tired or having little energy: not at all 5. Poor appetite or overeating: not at all 6. Feeling bad about yourself - or that you are a failure or have let yourself or your family down: not at all 7. Trouble concentrating on things, such as reading the newspaper or watching television: not at all 8. Moving or speaking so slowly that other people could have noticed. Or the opposite - being so fidgety or restless that you have been moving around a lot more than usual: not at all 9. Thoughts that you would be better off or of hurting yourself in some way: not at all Total score: 0 Depression Screening Interpretation: Negative Depression Screening Done: Yes Source: Developed by Drs. Gonzalez Hinojosa, Nazanin Mccray, Bharat Hayes and colleagues, with an educational josh from [email or web address]. Thrive Questionnaire Date Thrive assessed: 10/28/24 I am a: Patient What is your living situation today?: I have a steady place to live Within the past 12 months, did the food you bought not last and you didn't have the money to get more?: Never true Within the past 12 months, did you worry whether your food would run out before you got money to buy more?: Never true Do you have trouble paying for medicines?: No Do you have trouble getting transportation to medical appointments?: No Do you have trouble paying your heating and electricity bill?: No Do you have trouble taking care of your child, family member or friend?: No Do you have trouble with day-to-day activities such as bathing, preparing meals, shopping, managing finances, etc.?: No Are you currently unemployed and looking for a job?: No Are you interested in more education?: Yes Please select the resources that you would like help with: None Currently or been in a relationship where the following occur: No concerns reported THRIVE Score: 0 AUDIT C Alcohol Use Questionnaire (AUDIT-C) 1. How often do you have a drink containing alcohol?: Monthly or less 2. How many drinks containing alcohol do you have on a typical day when you are drinking?: 1 or 2 Total Score: 1 FESTUS-7 AMB Questionnaire FESTUS-7 Date FESTUS - 7 assessed: 10/28/24 Feeling nervous, anxious, or on edge: 0 = Not at all Not being able to stop or control worryin = Not at all Worrying too much about different things: 0 = Not at all Trouble relaxin = Not at all Being so restless that it is hard to sit still: 0 = Not at all Becoming easily annoyed or irritable: 0 = Not at all Feeling afraid as if something awful might happen: 0 = Not at all Total FESTUS-7 score (0-4 normal; 5-9 mild; 10-14 moderate; 15-21 severe): 0 Source: Developed by Drs. Gonzalez Hinojosa, Nazanin Mccray, Bharat Hayes and colleagues, with an educational josh from [email or web address]. Review of Systems Const All systems reviewed & are unremarkable except as noted in HPI and below Denies headache(s) Eyes Details: Goes to [facility] for his diabetes retinopathy screening ENT Denies dizziness and Denies headache(s) Card Denies chest pain and Denies dyspnea Resp Denies dyspnea GI Reports as per HPI Reports urinary frequency Musc Reports no additional complaints Skin/Breast Denies lesions and Denies rash Neuro Denies dizziness and Denies headache(s) Psych Reports no additional complaints Endo Reports polydipsia and Reports polyuria David/Lymph Reports no additional complaints Aller/Immun Reports no additional complaints Physical exam (Primary Care) Vital Signs: Last Vital Signs Temp 98.2 F 05/19/25 10:53 Pulse 98 05/19/25 10:53 Resp 16 05/19/25 10:53 BP 124/70 05/19/25 10:53 Pulse Ox 99 05/19/25 10:53 Oxygen Delivery Method Room Air 05/19/25 10:53 BMI result Body Mass Index 32.1 Tobacco/Smoking Status: Tobacco use Status Tobacco use date assessed 05/19/25 05/19/25 10:57 Patient Tobacco Use Status Never used Tobacco 05/19/25 10:57 e-Cigarette/Vaping Use Never Used 05/19/25 10:57 PHQ-9: PHQ-9 Score PHQ-9: Total score 0 05/19/25 11:36 Depression Screening Interpretation: Negative Thrive Assessment: Date of Thrive Assessment Date Thrive assessed 10/28/24 05/19/25 10:57 Currently or been in a relationship where the following occur: No concerns reported Const General: no acute distress and alert Orientation/consciousness: patient oriented x3 HENMT Ears: external ears normal, TM's normal bilaterally and EAC's normal General nose exam: Normal external nose present Mouth: Normal oral and palatal mucosa present, oropharynx normal and moist mucous membranes Eyes General: appearance normal, both eyes and all related structures Conjunctivae: conjunctivae normal Sclerae: sclerae normal Pupils: Equal, round and reactive pupils present EOM: EOMs intact bilaterally Neck Neck: Yes full ROM, Yes no lymphadenopathy and Yes supple Resp Effort & Inspection: normal respiratory effort and able to speak in complete sentences Auscultation: clear to auscultation bilaterally Cardio Rate: regular rate Rhythm: regular rhythm Heart sounds: S1 normal heart sound present and S2 normal heart sound present GI Palpation (GI): Soft to palpation, nontender and no masses Auscultation: normal bowel sounds Back/Spine/Pelvis Back: No back tenderness Neuro General: patient oriented x3, gait normal, tone normal, moves all extremities, Normal light touch and pain sensation and no focal motor deficits Cranial nerves: Yes CN's II-XII intact bilaterally and Yes Equal, round and reactive pupils present Cognition (Neuro): normal cognition Extrem General: Yes full ROM, Yes no joint enlargement, Yes no clubbing, cyanosis or edema and Yes no calf tenderness Psych Appearance: grossly normal and well kempt Mental Status: mental status grossly normal Speech and movement: Normal speech and movement present Affect: normal affect Results Reviewed Results Reviewed: Laboratory Tests 10/27/24 01/24/25 05/09/25 09:15 08:41 08:50 Estimat Average Glucose 226 Hemoglobin A1c % 9.5 H 8.3 H Microalb/Creat Ratio 36.0 H Name: Armando Goldstein Age/Sex: 49/M : 1975 Unit#: [id number] Attend Dr: Shae Machado MD Re05/09/25 Status: DEP REF Location: [facility] Disch: SPEC : [id number] AJAY: 05/09/25 STATUS: COMP REQ : [id number] RECD: 05/09/25-[address]: Shae Machado MD COMP: 05/09/25 ENTERED: 05/09/25-[address] [facility] [address]: ORDERED: Met Prof Fast, AST, ALT, Lipid Panel Test Result Flag Reference Sodium 139 135-145 mmol/L Potassium 3.3 3.3-5.1 mmol/L CL 99 96-108 mmol/L CO2 27 22-29 mmol/L Gap 16 12-20 BUN 24 H 9-16 mg/dL Creat 0.97 0.5-1.4 mg/dL eGFR > 60 Chronic Kidney Disease: Estimated GFR < 60 mL/min/1.73m2 Severe Kidney Disease: Estimated GFR < 15 mL/min/1.73m2 FBS 132 H 60-99 mg/dL A fasting glucose of 126 mg/dl or greater on more than one occasion is considered diagnostic of diabetes. CA 9.1 8.4-10.2 mg/dL AST (GOT) 33 5-37 U/L ALT (GPT) 36 0-40 U/L Triglyceride 327 H <150 mg/dL Desirable Triglyceride: less than 150 mg/dL Borderline High Triglyceride 150-199 mg/dL High Triglyceride: 200-499 mg/dL Very High Triglyceride: greater than or equal to 5OO mg/dL Cholesterol 113 <200 mg/dL Desirable Cholesterol: less than 200 mg/dL Borderline High Cholesterol: 200-239 mg/dL High Cholesterol: greater than 239 mg/dL LDL Calculated 21 <100 mg/dL Desirable LDL: less than 100 mg/dL Near Optimal/Above Optimal LDL: 110-129 mg/dL Borderline High LDL: 130-159 mg/dL High LDL: 160-189 mg/dL Very High LDL: greater than or equal to 190 mg/dL HDL 27 L >40 mg/dL Desirable HDL: greater than 40 mg/dL Note: This HDL assay may give artificially low results in patients with liver disease. Coding Level of Care Code Est Pt Level 4 (37135) Complex EM visit Add On G2211 Diagnoses Diabetes mellitus with microalbuminuria, without long-term current use of insulin E11.29; R80.9 Mixed dyslipidemia E78.2 Essential hypertension I10 Diabetes mellitus with mild nonproliferative retinopathy E11.3299 Assessment & Plan Assessment & Plan (1) Diabetes mellitus with microalbuminuria, without long-term current use of insulin: Code(s): E11.29 - Type 2 diabetes mellitus with other diabetic kidney complication; R80.9 - Proteinuria, unspecified Category: Medical (2) Mixed dyslipidemia: Code(s): E78.2 - Mixed hyperlipidemia Category: Medical (3) Essential hypertension: Code(s): I10 - Essential (primary) hypertension Category: Medical (4) Diabetes mellitus with mild nonproliferative retinopathy: Code(s): E11.3299 - Type 2 diabetes mellitus with mild nonproliferative diabetic retinopathy without macular edema, unspecified eye Category: Medical Plan Patient was informed and verbally consented to the use of an ambient scribe for clinic note documentation during this visit. 1. Diabetes Mellitus The plan for diabetes mellitus includes continuing current medications, Jardiance and Metformin, and addressing insurance coverage issues for Joaquin by obtaining prior authorization with the new insurance, [employer]. The patient's blood sugar levels have improved, with a decrease in A1c from 9.5 to 8.3, and the goal is to further reduce A1c to below 7. The patient is advised to maintain dietary modifications and exercise to support weight loss and glycemic control. 2. Constipation Constipation management includes dietary adjustments such as increased fiber intake and hydration, along with the use of stool softeners as needed. The patient is advised to continue monitoring symptoms and adjust dietary habits accordingly. 3. Essential hypertension Continue irbesartan 100 mg daily and metoprolol succinate ER 50 mg once a day as well as chlorthalidone 25 mg daily 4. Dyslipidemia Latest fasting labs showed results within normal limits, continued on atorvastatin 20 mg daily Orders: Orders Hemoglobin A1c 08/10/25 E11.29 - Type 2 diabetes mellitus with other diabetic kidney complication, E11.3299 - Type 2 diabetes mellitus with mild nonproliferative diabetic retinopathy without macular edema, unspecified eye, E78.2 - Mixed hyperlipidemia, I10 - Essential (primary) hypertension, R80.9 - Proteinuria, unspecified Aspartate Amino Transferase 08/10/25 E11.29 - Type 2 diabetes mellitus with other diabetic kidney complication, E11.3299 - Type 2 diabetes mellitus with mild nonproliferative diabetic retinopathy without macular edema, unspecified eye, E78.2 - Mixed hyperlipidemia, I10 - Essential (primary) hypertension, R80.9 - Proteinuria, unspecified Alanine Aminotransferase 08/10/25 E11.29 - Type 2 diabetes mellitus with other diabetic kidney complication, E11.3299 - Type 2 diabetes mellitus with mild nonproliferative diabetic retinopathy without macular edema, unspecified eye, E78.2 - Mixed hyperlipidemia, I10 - Essential (primary) hypertension, R80.9 - Proteinuria, unspecified Basic Metabolic Panel Fasting 08/10/25 E11.29 - Type 2 diabetes mellitus with other diabetic kidney complication, E11.3299 - Type 2 diabetes mellitus with mild nonproliferative diabetic retinopathy without macular edema, unspecified eye, E78.2 - Mixed hyperlipidemia, I10 - Essential (primary) hypertension, R80.9 - Proteinuria, unspecified Lipid Panel 08/10/25 E11.29 - Type 2 diabetes mellitus with other diabetic kidney complication, E11.3299 - Type 2 diabetes mellitus with mild nonproliferative diabetic retinopathy without macular edema, unspecified eye, E78.2 - Mixed hyperlipidemia, I10 - Essential (primary) hypertension, R80.9 - Proteinuria, unspecified Medications: Changed From docusate sodium 100 mg PO DAILY 30 caps 5RF To docusate sodium 100 mg PO BID 60 caps 5RF Refilled Mounjaro (tirzepatide) for 4 weeks 2.5 mg (0.5 mL) subcut QWEEK 2 mL 5RF NS E11.29 - Type 2 diabetes mellitus with other diabetic kidney complication, E11.3299 - Type 2 diabetes mellitus with mild nonproliferative diabetic retinopathy without macular edema, unspecified eye, E11.65 - Type 2 diabetes mellitus with hyperglycemia, R80.9 - Proteinuria, unspecified
--- OUTSIDE RECORDS SUMMARY | 2025-05-19 12:30 | XMS_ITS | Patient Health Record ---
Author Organization [facility] Address [address] [place] [address] Care Team Providers Care Paving Contractor Name Role Phone Jing Mcclain NP Primary Care Provider Unavail able Chris Balderas Unavailable [phone] Reason For Referral No Information Medications Medication SIG (Take, Route, Fr equency, Duration) Notes Start Date End Date Status Aspirin 81 MG Orally Once a day Active Multivitamin Active Vitamin D3 2000 UNIT Orally Once a day Active metFORMIN HCl 500 MG Orally Active Lisinopril 20 MG Orally Act maxine Social History Tobacco Use: Social History Observation Description Date Details (start date - stop date) Never Smoker NA - NA Tobacco Use/Smoking Question Answer Notes Are you a: nonsmoker Additional Findings: Tobacco Non-User Current no n-smoker Alcohol Screen Question Answer Notes Did you have a drink contain ing alcohol in the past year? Yes How often did you have a dri nk containing alcohol in the past year? Monthly or less (1 point) Points 1 Interpretation Negative Tobacco use other than smoking: Question Answer Notes Are you an other tobacco user? No Problems Problem Type SNOMED Code ICD Code Onset Dates Problem Status W/U Status Risk Notes Problem Tinea unguium (235022292) Tinea unguium (B35.1) Active confirmed Problem Type II diabetes mellitus without complication (296282540) Type 2 diabetes mellitus without complications (E11.9) Active confirmed Plan Of Treatment Pending Test Test Name Order Date [id number] NAIL, 6 OR MORE 06/22/2017 Insurance Providers Payer Name Payer Address Payer Phone Subscriber Number Group Number Insured Name Patient Relationship to Insured Coverage Start Date Coverage End Date [id number] [facility] [id number] [place] [phone] [id number] Armando Melendez Self - patient is the insured Medical (General) History Medical History History ICD Code Diabetic High blood pressure
== END 2025-05-19 11:59 | disposition home or self-care (01) ==
LOC: HO.HMCC 10:37
PROVIDERS: PCP Internal Medicine; Visit Provider Internal Medicine
DX: E11.29 Type 2 diabetes mellitus with other diabetic kidney complication (principal); E11.3299 Type 2 diabetes mellitus with mild nonproliferative diabetic retinopathy without macular edema, unspecified eye; R80.9 Proteinuria, unspecified; E78.2 Mixed hyperlipidemia; I10 Essential (primary) hypertension

== ENCOUNTER 2025-07-21 13:56 | Outpatient (AMB) | payer OTHER, SELFPAY ==
[2025-07-21 13:59] VITALS: BP 140/78; PULSE 91; TEMP 36.9; O2SAT 95; BMI 33.2
--- NOTE | 2025-07-21 13:59 | AM.OFFWIN_ITS ---
Intake Vital Signs 07/21/25 13:59 Height 5 ft 11 in Weight 238 lb BMI 33.2 BP 140/78 H Blood Pressure Location Lt brachial Position Sitting Pulse 91 Pulse Source Pulse Oximeter Temp 98.5 F Temp Source Oral Pulse Oximetry (%) 95 Oxygen Delivery Method Room Air Intake Visit Reasons: EP Possible blister on right foot Intake Note: Patient presents with c/o blister on right great toe x1 week. Patient Tobacco Use Status: Never used Tobacco Allergies lisinopril Adverse Reaction (Unknown, Verified 07/21/25 14:05) cough Do you need a note to return to daycare/school/sports/work: Yes HPI HPI Comments History of Present Illness Details History of Present Illness - The patient is a 50-year-old male pres enting with a blister on the right great toe of the right foot. - The blister developed after extensive walking during a trip to [place]. - The patient sought medical attention i [facility] on 07/13/2025 and was prescribed augmentin and a topical antibiotic cream. - He was given bandages with antibiotic and silvadene. - The blister is healing but requires mo re time for complete recovery. - The patient has a history of diabetes mellitus. - He denies fever, chills, numbness, tin gling, redness, discharge, streaking, bleeding. - He has pain especially walking or wear ing a shoe. - He needs a note for work. Physical Exam General: Cooperative, healthy appearing, comfortable, no acute distress and well developed Orientation: Patient oriented x3 Respiratory: Normal respiratory effort and able to speak in complete sentences. Clear to auscultation bilaterally Cardiovascular: Regular rate and rhythm. Normal S1 and S2. Pulses are 2+ on the LE. Skin: Blister noted on the plantar surface of the right great toe, open with dry hardened skin noted. New skin noted with no erythema or drainage. No bleeding noted. No streaking noted. Neuro: Sensation intact. Extremities: Normal to inspection. FROM of the digits on the right foot. Patient was informed and verbally consented to the use of an ambient scribe for clinic note documentation during this visit. [facility] Medical History Diabetes mellitus with mild nonproliferative retinopathy Essential hypertension Mixed dyslipidemia Diabetes mellitus with microalbuminuria, without long-term current use of insulin Surgical History History of nasal surgery History of vasectomy Family History Father HTN (hypertension) Diabetes mellitus Mother No problems noted. Brother No problems noted. Son No problems noted. Daughter No problems noted. Social History Housing: Apartment Alcohol intake: never Patient Tobacco Use Status: Never used Tobacco e-Cigarette/Vaping Use: Never Used service: No Current occupational status: employed Cognitive needs: No Hearing needs: No Vision needs: Yes Review of Systems Const All systems reviewed & are unremarkable except as noted in HPI and below Physical Exam Vital Signs: Last Vital Signs Temp 98.5 F 07/21/25 13:59 Pulse 91 07/21/25 13:59 BP 140/78 H 07/21/25 13:59 Pulse Ox 95 07/21/25 13:59 Oxygen Delivery Method Room Air 07/21/25 13:59 BMI result Body Mass Index 33.2 Assessment & Plan Assessment & Plan (1) Blister of toe of right foot: Code(s): S90.424A - Blister (nonthermal), right lesser toe(s), initial encounter Qualifiers: Encounter type: subsequent encounter Qualified Code(s): S90.424D - Blister (nonthermal), right lesser toe(s), subsequent encounter (2) Open wound: Code(s): T14.8XXA - Other injury of unspecified body region, initial encounter Plan Most likely Blister On Foot healing and now an open wound plan - Continue monitoring the healing process of the blister. - Prescribe an antibiotic ointment to aid in healing. - Doxycycline BID for 7 more days. - Schedule a follow-up appointment with the primary care physician to ensure proper healing. - follow up with PCP next week - work note given Medications: New mupirocin 2% 1 appl topical TID 22 grams 0RF doxycycline hyclate 100 mg PO BID 14 tabs 0RF Coding Level of Care Code Est Pt Level 3 (76182) Diagnoses Blister of toe of right foot, subsequent encounter S90.424D Encounter type: subsequent encounter Open wound T14.8XXA
--- OUTSIDE RECORDS SUMMARY | 2025-07-21 15:31 | XMS_ITS | Patient Health Record ---
Author Organization [facility] Address [address] [place] [address] Care Team Providers Care Store Team Leader Name Role Phone Jing Mcclain NP Primary Care Provider Unavail able Chris Balderas Unavailable [phone] Reason For Referral No Information Medications Medication [...] W/U Status Risk Notes Problem Tinea unguium (538148332) Tinea unguium (B35.1) Active confirmed Problem Type II diabetes mellitus without complication (543061357) Type 2 diabetes mellitus without complications (E11.9) Active confirmed Plan Of Treatment Pending Test Test Name Order Date [id number] NAIL, 6 OR MORE 06/22/2017 Insurance Providers Payer Name Payer Address Payer Phone Subscriber Number Group Number Insured Name Patient Relationship to Insured Coverage Start Date Coverage End Date [id number] [facility] [id number] [place] [phone] [id number] Armando Melendez Self - patient is the insured Medical (General) History Medical History History ICD Code Diabetic High blood pressure
== END 2025-07-21 15:50 | disposition home or self-care (01) ==
PROVIDERS: PCP Internal Medicine; Visit Provider Physician Assistant Medical
DX: S90.424D Blister (nonthermal), right lesser toe(s), subsequent encounter (principal); T14.8XXA Other injury of unspecified body region, initial encounter

== ENCOUNTER 2025-07-28 10:11 | Outpatient (AMB) | payer OTHER, SELFPAY ==
[2025-07-28 11:25] VITALS: BP 122/70; PULSE 85; RESP 16; TEMP 36.8; O2SAT 97; BMI 31.7
--- NOTE | 2025-07-28 11:25 | A.OFFPC_ITS ---
Vital Signs 07/28/25 11:25 Height 5 ft 11 in Weight 227 lb BMI 31.7 BP 122/70 Blood Pressure Location Rt brachial Position Sitting Respiration 16 Pulse 85 Pulse Source Pulse Oximeter Temp 98.2 F Temp Source Oral Pulse Oximetry (%) 97 Oxygen Delivery Method Room Air Intake Visit Reasons: f/u walkin Rt grt toe blister Intake Note: Pt is here today to f/u walkin Lt Grt toe blister Public Address System Mechanic Required: No Allergies lisinopril Adverse Reaction (Unknown, Verified 07/28/25 11:28) cough Tobacco use date assessed: 07/28/25 Dental Screening Dental Screen Date: 07/28/25 Did you have a dental visit in the last 12 months?: Yes Did you have a dental problem in the last 6 months where you did not have access to dental care?: No Was dental information given to patient?: Patient has dentist [facility] Medical History (Updated 07/28/25 @ 11:46 by Shae Machado MD) Dysplastic toenail Toe contusion Toenail bruise Toe abrasion Diabetes mellitus with mild nonproliferative retinopathy Essential hypertension Mixed dyslipidemia Diabetes mellitus with microalbuminuria, without long-term current use of insulin Surgical History History of nasal surgery History of vasectomy Family History Father HTN (hypertension) Diabetes mellitus Mother No problems noted. Brother No problems noted. Son No problems noted. Daughter No problems noted. Social History Housing: Apartment Alcohol intake: never Patient Tobacco Use Status: Never used Tobacco e-Cigarette/Vaping Use: Never Used service: No Current occupational status: employed Cognitive needs: No Hearing needs: No Vision needs: Yes Questionnaire Thrive Questionnaire Date Thrive assessed: 10/28/24 I am a: Patient What is your living situation today?: I have a steady place to live Within the past 12 months, did the food you bought not last and you didn't have the money to get more?: Never true Within the past 12 months, did you worry whether your food would run out before you got money to buy more?: Never true Do you have trouble paying for medicines?: No Do you have trouble getting transportation to medical appointments?: No Do you have trouble paying your heating and electricity bill?: No Do you have trouble taking care of your child, family member or friend?: No Do you have trouble with day-to-day activities such as bathing, preparing meals, shopping, managing finances, etc.?: No Are you currently unemployed and looking for a job?: No Are you interested in more education?: Yes Please select the resources that you would like help with: None Currently or been in a relationship where the following occur: No concerns reported THRIVE Score: 0 FESTUS-7 AMB Questionnaire FESTUS-7 Date FESTUS - 7 assessed: 10/28/24 Source: Developed by Drs. Gonzalez Hinojosa, Nazanin Mccray, Bharat Hayes and colleagues, with an educational josh from [employer]. Physical exam (Primary Care) Vital Signs: Last Vital Signs Temp 98.2 F 07/28/25 11:25 Pulse 85 07/28/25 11:25 Resp 16 07/28/25 11:25 BP 122/70 07/28/25 11:25 Pulse Ox 97 07/28/25 11:25 Oxygen Delivery Method Room Air 07/28/25 11:25 BMI result Body Mass Index 31.7 Tobacco/Smoking Status: Tobacco use Status Tobacco use date assessed 07/28/25 07/28/25 11:30 Patient Tobacco Use Status Never used Tobacco 07/28/25 11:30 e-Cigarette/Vaping Use Never Used 07/28/25 11:30 Thrive Assessment: Date of Thrive Assessment Date Thrive assessed 10/28/24 07/28/25 11:30 Currently or been in a relationship where the following occur: No concerns reported Office Procedures Flu Questionnaire Does the patient have a severe egg allergy?: No Does the patient have severe life threatening allergies?: No Does the patient have a fever or illness today?: No Has the patient ever had Guillain-Transfer Syndrome?: No Has the patient ever had any past reaction to a flu shot?: No Immunizations Fluarix [id number] (PF) 45 mcg (15 mcg x 3)/0.5 mL IM syringe Performing Provider: Shae Machado MD Performing Location: [facility] Administered by: Haydee Rincon CMA on 07/28/25 11:48 Dose Route Admin Location Dispensed Lot Number Expiration Date [employer] Consultant 0.5 mL IM Right Deltoid 0.5 mL [id number] 03/09/26 [id number] [employer] VIS Given Date VIS Provided VIS Publication Date 07/28/25 Single Vaccine 24 Eligibility Eligibility Date Funding Source Not [facility] Eligible 07/28/25 Private Coding Diagnoses Toe abrasion S90.416A Toenail bruise S90.229A Toe contusion S90.129A Dysplastic toenail Q84.6 Assessment & Plan Assessment & Plan (1) Toe abrasion: Code(s): S90.416A - Abrasion, unspecified lesser toe(s), initial encounter Category: Medical (2) Toenail bruise: Code(s): S90.229A - Contusion of unspecified lesser toe(s) with damage to nail, initial encounter Category: Medical (3) Toe contusion: Code(s): S90.129A - Contusion of unspecified lesser toe(s) without damage to nail, initial encounter Category: Medical (4) Dysplastic toenail: Code(s): Q84.6 - Other congenital malformations of nails Category: Medical Orders: Orders Influenza [id number] Immunization Today Z23 - Encounter for immunization Referrals Podiatry Referral Q84.6 - Other congenital malformations of nails, S90.129A - Contusion of unspecified lesser toe(s) without damage to nail, initial encounter, S90.229A - Contusion of unspecified lesser toe(s) with damage to nail, initial encounter
== END 2025-07-28 11:50 | disposition home or self-care (01) ==
LOC: HO.HMCC 10:11
PROVIDERS: PCP Internal Medicine; Visit Provider Internal Medicine
DX: Z23 Encounter for immunization (principal)

== ENCOUNTER → 2025-07-28 10:11 | Outpatient (BNVA) | payer OTHER, SELFPAY | PROVIDERS: PCP Internal Medicine; Visit Provider Internal Medicine | DX: Z23 Encounter for immunization (principal); S90.421A Blister (nonthermal), right great toe, initial encounter; L08.9 Local infection of the skin and subcutaneous tissue, unspecified; Q84.6 Other congenital malformations of nails | CPT/HCPCS: 90471; 90656 ==

== ENCOUNTER 2025-08-17 08:38 | Outpatient (REF) | payer BC, SELFPAY ==
[2025-08-17 11:11] LABS: Alanine Aminotransferase 32 U/L (0-40); Anion Gap 12 (12-20); Aspartate Amino Transferase 35 U/L (5-37); Blood Urea Nitrogen 22 mg/dL (9-16); Calcium 9.4 mg/dL (8.4-10.2); Carbon Dioxide 32 mmol/L (22-29); Chloride 98 mmol/L (96-108); Cholesterol 134 mg/dL (<200); Estimated Glomerular Filt Rate > 60; HDL Cholesterol 34 mg/dL (>40); Potassium 3.7 mmol/L (3.3-5.1); Sodium 138 mmol/L (135-145); Triglycerides 263 mg/dL (<150)
== END 2025-08-17 08:39 | disposition home or self-care (01) ==
LOC: HO.HMGCLDS 08:38
PROVIDERS: PCP Internal Medicine; Visit Provider Internal Medicine
DX: I10 Essential (primary) hypertension (principal); E11.3299 Type 2 diabetes mellitus with mild nonproliferative diabetic retinopathy without macular edema, unspecified eye; E11.29 Type 2 diabetes mellitus with other diabetic kidney complication; E78.2 Mixed hyperlipidemia; R80.9 Proteinuria, unspecified
CPT/HCPCS: 36415; 80048; 80061; 83036; 84450; 84460

== ENCOUNTER 2025-08-19 08:02 | Outpatient (AMB) | payer BC, SELFPAY ==
[2025-08-19 08:27] VITALS: BMI 31.7
--- NOTE | 2025-08-19 08:27 | MHC.OFFVIS ---
Vital Signs 08/19/25 08:27 Height 5 ft 11 in Weight 227 lb BMI 31.7 Intake Visit Reasons: Toe bruise Intake Note: Armando is a 50 year old male who presents today as a new patient for an evaluation of his bruised toe. Patient reports he had developed a blister with infection on his right great toe, as well as the second and third toes last month after extensive walking in [place]. He was seen by a provider while he was in [place] and was prescribed antibiotics which has since been completed. Patient reports he is no longer experiencing any pain at this time however he does mention he had lost the nail to his left great toe but finds that he is recovering well. He states hir right foot is also recovering well and he has no concerns at this time. Patient states his glucose recently was at 260 and his last known A1c was 7.6 Allergies lisinopril Adverse Reaction (Unknown, Verified 08/21/25 15:33) cough HPI Comments Details: The patient is a 50 year old male with a past medical history as seen below presenting for evaluation of his right hallux, 2nd, and 3rd toes. He reports that while traveling in [place], he developed a bleeding blister on his right great toe after extensive walking. He sought medical attention there and was prescribed a course of antibiotics, which he completed. Upon returning to the [facility], he went to a walk-in clinic and received another course of antibiotics. The patient also reports losing the nail on the affected toe and has been applying an zynm-[id number]-[id number] keratin topical medication to replenish it. He denies observing any pus from the blister. The blister has since healed. Patient states he notices discoloration and thickness to toenails 2 and 3 of the right foot. The patient has a history of diabetes and reports recent blood sugar levels between 230-240 mg/dL, with a high of 260 mg/dL yesterday. He has a pending A1C result and an upcoming appointment with his primary care physician tomorrow. He denies any symptoms of numbness or tingling in his feet. [facility] Medical History (Updated 08/20/25 @ 09:30 by Shae Machado MD) Diabetic neuropathy Blister (nonthermal), right great toe, initial encounter Nail dystrophy Nail disorder Tinea unguium Infected blister of great toe Toe contusion Toenail bruise Toe abrasion Diabetes mellitus with mild nonproliferative retinopathy Essential hypertension Mixed dyslipidemia Diabetes mellitus with microalbuminuria, without long-term current use of insulin Surgical History History of nasal surgery History of vasectomy Family History Father HTN (hypertension) Diabetes mellitus Mother No problems noted. Brother No problems noted. Son No problems noted. Daughter No problems noted. Social History Housing: Apartment Alcohol intake: never Patient Tobacco Use Status: Never used Tobacco e-Cigarette/Vaping Use: Never Used service: No Current occupational status: employed Cognitive needs: No Hearing needs: No Vision needs: Yes Review of Systems Const Details: - Integumentary: Reports a history of a bleeding blister on the right great toe which has since healed. Reports loss of the right great toenail. Reports increased thickness and discoloration to the 2nd and 3rd toes of the right foot. - Musculoskeletal: Reports slight pain in the right great toe upon palpation. All systems reviewed & are unremarkable except as noted in HPI and below Physical Exam Vital Signs: BMI result Body Mass Index 31.7 Extrem Other: Right lower extremity focused physical exam: Derm: Hyperkeratotic lesions consistent with the remnants of the blisters noted to the medial aspect of the right hallux. Very thin layer of nail noted to the right hallux. Thickened and discolored toenails noted to the 2nd and 3rd toes. Remaining toes within normal limits. No open lesions abrasions or wounds noted. No purulence or drainage or bleeding noted. No maceration noted. No clinical signs of infection noted. Vascular: DP/PT pulses palpable. Capillary refill time less than 3 seconds. Temperature gradient warm to warm. Pedal hair present. No varicosities noted. No edema noted. Neuro: Protective sensations grossly intact to light touch and diminished to monofilament testing. MSK: Mild pain on palpation to the right hallucal nail. Range of motion of the forefoot hindfoot and ankle within normal limits. No crepitus or fluctuance noted. No other gross abnormalities noted. Nonantalgic unassisted gait noted. Office Procedures Diabetic Foot Exam G9226 - Diabetic Foot Exam Results Reviewed Results Reviewed: Laboratory Tests 08/17/25 08:41 Fasting Glucose 144 H Hemoglobin A1c % 7.6 H AST 35 ALT 32 Assessment & Plan Assessment & Plan (1) Blister (nonthermal), right great toe, initial encounter: Code(s): S90.421A - Blister (nonthermal), right great toe, initial encounter Category: Medical (2) Nail dystrophy: Code(s): L60.3 - Nail dystrophy Category: Medical (3) Nail disorder: Code(s): L60.9 - Nail disorder, unspecified Category: Medical (4) Tinea unguium: Code(s): B35.1 - Tinea unguium Category: Medical (5) Diabetes mellitus with microalbuminuria, without long-term current use of insulin: Code(s): E11.29 - Type 2 diabetes mellitus with other diabetic kidney complication; R80.9 - Proteinuria, unspecified Category: Medical (6) Diabetic neuropathy: Code(s): E11.40 - Type 2 diabetes mellitus with diabetic neuropathy, unspecified Category: Medical Plan Patient was informed and verbally consented to the use of an ambient scribe for clinic note documentation during this visit. I discussed with the patient that the iavk-cga-hrokxgx keratin jordanian he was using for his toenail was building up and not penetrating the nail effectively. I explained the importance of filing the nail surface before each application to allow the medication to get into the nail. We reviewed treatment options for the fungal infection, including a topical jordanian which takes about a year, and an oral medication which works in three to four months but requires liver function monitoring. The patient preferred the topical treatment. I will prescribe ciclopirox, a stronger topical agent. I also advised him to keep the skin on his right great toe moisturized with a thick cream to prevent cracking and the development of a wound, particularly given his history of diabetes. I instructed him to monitor for signs of infection such as redness or drainage and to call us if they occur. A follow-up visit is scheduled for six months. - A prescription for ciclopirox topical solution was sent to the pharmacy for treatment of onychomycosis. - The patient was educated on the proper application of the topical antifungal, including the need to file the nail before each application to allow for better penetration. - Advised the patient to continue using a thick cream to prevent fissures. - Continue diabetic management as per PCP. - Advised patient to wear supportive shoe gear and avoid barefoot walking. RTC in 6 months. Orders: Orders AMB Diabetic Foot Exam 08/19/25 B35.1 - Tinea unguium, E11.29 - Type 2 diabetes mellitus with other diabetic kidney complication, E11.40 - Type 2 diabetes mellitus with diabetic neuropathy, unspecified, L60.3 - Nail dystrophy, L60.9 - Nail disorder, unspecified, R80.9 - Proteinuria, unspecified, S90.421A - Blister (nonthermal), right great toe, initial encounter Medications: New ciclopirox 8% 1 appl topical BEDTIME 6.6 mL 1RF 4 weeks B35.1 - Tinea unguium, E11.29 - Type 2 diabetes mellitus with other diabetic kidney complication, E11.40 - Type 2 diabetes mellitus with diabetic neuropathy, unspecified, L60.3 - Nail dystrophy, L60.9 - Nail disorder, unspecified, R80.9 - Proteinuria, unspecified, S90.421A - Blister (nonthermal), right great toe, initial encounter Coding Level of Care Code New Pt Level 4 (80321) Diagnoses Blister (nonthermal), right great toe, initial encounter S90.421A Nail dystrophy L60.3 Nail disorder L60.9 Tinea unguium B35.1 Diabetes mellitus with microalbuminuria, without long-term current use of insulin E11.29; R80.9 Diabetic neuropathy E11.40 CPT Codes Diabetic Foot Exam - CPT: G9226 - Diabetic Foot Exam ([id number]) Time Spent (min) 48
== END 2025-08-19 08:50 | disposition home or self-care (01) ==
LOC: HO.HPODS 08:02
PROVIDERS: PCP Internal Medicine; Visit Provider Student in an Organized Health Care Education/Training Program
DX: S90.421A Blister (nonthermal), right great toe, initial encounter (principal); L60.3 Nail dystrophy; L60.9 Nail disorder, unspecified; B35.1 Tinea unguium; E11.29 Type 2 diabetes mellitus with other diabetic kidney complication; R80.9 Proteinuria, unspecified; E11.40 Type 2 diabetes mellitus with diabetic neuropathy, unspecified
CPT/HCPCS: 99204; G9226

== ENCOUNTER 2025-08-20 08:32 | Outpatient (AMB) | payer OTHER, SELFPAY ==
[2025-08-20 08:50] VITALS: BP 122/76; PULSE 98; RESP 16; TEMP 36.8; O2SAT 97; BMI 32.4
--- NOTE | 2025-08-20 08:50 | A.OFFPC_ITS ---
Vital Signs 08/20/25 08:50 Height 5 ft 11 in Weight 232 lb BMI 32.4 BP 122/76 Blood Pressure Location Lt brachial Position Sitting Respiration 16 Pulse 98 Pulse Source Pulse Oximeter Temp 98.3 F Temp Source Oral Pulse Oximetry (%) 97 Oxygen Delivery Method Room Air Intake Visit Reasons: Annual PE Intake Note: Pt is here today for his PE: Last cologuard 08/13/24 Shuttle Spotter Required: No Allergies lisinopril Adverse Reaction (Unknown, Verified 08/21/25 15:33) cough Medication List - Last Reconciled 08/20/25 by Shae Machado MD atorvastatin 20 mg PO DAILY chlorthalidone 25 mg PO DAILY ciclopirox 8% 1 appl topical BEDTIME 4 weeks docusate sodium 100 mg PO BID irbesartan 300 mg PO DAILY Jardiance (empagliflozin) 25 mg PO QAM NS metformin ER 1,000 mg (2 x 500 mg) PO BID metoprolol succinate ER 50 mg PO DAILY Mounjaro (tirzepatide) 2.5 mg (0.5 mL) subcut QWEEK NS mupirocin 2% 1 appl topical TID Tobacco use date assessed: 08/20/25 Dental Screening Dental Screen Date: 08/20/25 Did you have a dental visit in the last 12 months?: Yes Did you have a dental problem in the last 6 months where you did not have access to dental care?: No Was dental information given to patient?: Patient has dentist HPI HPI Comments History of Present Illness Details The patient is a 50 year old male presenting for his physical exam and follow-up of type 2 diabetes and constipation. He has been on Mounjaro 2.5 mg injected weekly for approximately six months for his diabetes. Recent lab work from June showed an improved HbA1c of 7.6%, with an average blood glucose of 171 mg/dL over the last three months. He complains of constipation while on Mounjaro, for which he has been taking docusate 200 mg daily. He also reports decreased appetite and feeling full for long hours, sometimes forgetting to eat. His medical history includes hyperlipidemia, with triglycerides and LDL cholesterol trending down; his LDL was recently 48 mg/dL. His good cholesterol has been increasing with exercise. He has a history of chronic kidney disease, which is being followed by a garden implement mechanic whom he last saw in November of the current year. Regarding preventative care, he is up-to-date on his flu and pneumonia vaccinations. He had a Cologuard test for colon cancer screening one year ago, which was negative and is due for repeat testing in three years, around 2026. He is due for his annual diabetic eye exam, last performed in 2022. He completed an advance directive, designating his mother as his healthcare proxy. [facility] Medical History (Updated 08/20/25 @ 09:30 by Shae Machado MD) Diabetic neuropathy Blister (nonthermal), right great toe, initial encounter Nail dystrophy Nail disorder Tinea unguium Infected blister of great toe Toe contusion Toenail bruise Toe abrasion Diabetes mellitus with mild nonproliferative retinopathy Essential hypertension Mixed dyslipidemia Diabetes mellitus with microalbuminuria, without long-term current use of insulin Surgical History History of nasal surgery History of vasectomy Family History Father HTN (hypertension) Diabetes mellitus Mother No problems noted. Brother No problems noted. Son No problems noted. Daughter No problems noted. Social History Housing: Apartment Alcohol intake: never Patient Tobacco Use Status: Never used Tobacco e-Cigarette/Vaping Use: Never Used service: No Current occupational status: employed Cognitive needs: No Hearing needs: No Vision needs: Yes Questionnaire PHQ-9 Over the last 2 weeks, how often have you been bothered by any of the following problems? 1. Little interest or pleasure in doing things: not at all 2. Feeling down, depressed, or hopeless: not at all 3. Trouble falling or staying asleep, or sleeping too much: not at all 4. Feeling tired or having little energy: not at all 5. Poor appetite or overeating: not at all 6. Feeling bad about yourself - or that you are a failure or have let yourself or your family down: not at all 7. Trouble concentrating on things, such as reading the newspaper or watching television: not at all 8. Moving or speaking so slowly that other people could have noticed. Or the opposite - being so fidgety or restless that you have been moving around a lot more than usual: not at all 9. Thoughts that you would be better off or of hurting yourself in some way: not at all Total score: 0 Depression Screening Interpretation: Negative Depression Screening Done: Yes Source: Developed by Drs. Gonzalez Hinojosa, Nazanin Mccray, Bharat Hayes and colleagues, with an educational josh from [employer]. Thrive Questionnaire Date Thrive assessed: 10/28/24 I am a: Patient What is your living situation today?: I have a steady place to live Within the past 12 months, did the food you bought not last and you didn't have the money to get more?: Never true Within the past 12 months, did you worry whether your food would run out before you got money to buy more?: Never true Do you have trouble paying for medicines?: No Do you have trouble getting transportation to medical appointments?: No Do you have trouble paying your heating and electricity bill?: No Do you have trouble taking care of your child, family member or friend?: No Do you have trouble with day-to-day activities such as bathing, preparing meals, shopping, managing finances, etc.?: No Are you currently unemployed and looking for a job?: No Are you interested in more education?: Yes Please select the resources that you would like help with: None Currently or been in a relationship where the following occur: No concerns reported THRIVE Score: 0 AUDIT C Alcohol Use Questionnaire (AUDIT-C) 1. How often do you have a drink containing alcohol?: Monthly or less 2. How many drinks containing alcohol do you have on a typical day when you are drinking?: 1 or 2 Total Score: 1 FESTUS-7 AMB Questionnaire FESTUS-7 Date FESTUS - 7 assessed: 10/28/24 Feeling nervous, anxious, or on edge: 0 = Not at all Not being able to stop or control worryin = Not at all Worrying too much about different things: 0 = Not at all Trouble relaxin = Not at all Being so restless that it is hard to sit still: 0 = Not at all Becoming easily annoyed or irritable: 0 = Not at all Feeling afraid as if something awful might happen: 0 = Not at all Total FESTUS-7 score (0-4 normal; 5-9 mild; 10-14 moderate; 15-21 severe): 0 Source: Developed by Drs. Gonzalez Hinojosa, Nazanin Mccray, Bharat Hayes and colleagues, with an educational josh from [employer]. Review of Systems Narrative Review of Systems - Constitutional: Reports decreased appetite and feeling full for long hours. - Gastrointestinal: Reports constipation. - Neurological: Denies numbness or tingling in the legs. - Cardiovascular: Denies chest pain. - Respiratory: Denies shortness of breath. Constitution Reports no additional complaints Eyes no change in vision ENT Reports no additional complaints, Denies dysphagia and Denies odynophagia Cardiology Reports no additional complaints Respiratory Reports no additional complaints GI Denies abdominal pain, Denies belching, Denies melena, Denies bloating, Denies change in bowel habits, Denies dysphagia, Denies excessive flatus, Denies dyspepsia, Denies heartburn, Denies diarrhea, Denies loose stools, Denies nausea, Denies odynophagia and Denies vomiting Reports no additional complaints Muscular no additional complaints Skin/Breast Denies breast swelling, Denies breast pain, Denies breast mass and Denies rash Neurology Reports no additional complaints, Denies Abnormal speech present and Denies Sensory deficit (Neuro) Psychiatry Reports no additional complaints Endocrine Reports no additional complaints David/Lymph Reports no additional complaints Aller/Immun Reports no additional complaints Physical exam (Primary Care) Vital Signs: Last Vital Signs Temp 98.3 F 08/20/25 08:50 Pulse 98 08/20/25 08:50 Resp 16 08/20/25 08:50 BP 122/76 08/20/25 08:50 Pulse Ox 97 08/20/25 08:50 Oxygen Delivery Method Room Air 08/20/25 08:50 BMI result Body Mass Index 32.4 Tobacco/Smoking Status: Tobacco use Status Tobacco use date assessed 08/20/25 08/20/25 08:52 Patient Tobacco Use Status Never used Tobacco 08/20/25 08:50 e-Cigarette/Vaping Use Never Used 08/20/25 08:50 PHQ-9: PHQ-9 Score PHQ-9: Total score 0 08/20/25 09:13 Depression Screening Interpretation: Negative Thrive Assessment: Date of Thrive Assessment Date Thrive assessed 10/28/24 08/20/25 08:50 Currently or been in a relationship where the following occur: No concerns reported Narrative Physical Exam - Abdomen: Non-tender to palpation. - General: No acute distress observed. Const General: no acute distress and alert Orientation/consciousness: patient oriented x3 [facility] General nose exam: Normal external nose present Mouth: moist mucous membranes Eyes General: appearance normal, both eyes and all related structures Conjunctivae: conjunctivae normal Sclerae: sclerae normal EOM: EOMs intact bilaterally Neck Neck: Yes full ROM, Yes no lymphadenopathy and Yes supple Resp Effort & Inspection: normal respiratory effort and able to speak in complete sentences Auscultation: clear to auscultation bilaterally Cardio Rate: regular rate Rhythm: regular rhythm Heart sounds: S1 normal heart sound present and S2 normal heart sound present GI Palpation (GI): Soft to palpation, nontender and no masses Auscultation: normal bowel sounds General: Yes no CVA tenderness Back/Spine/Pelvis Back: no CVA tenderness and No back tenderness Neuro General: patient oriented x3, gait normal, tone normal, moves all extremities, Normal light touch and pain sensation and no focal motor deficits Cognition (Neuro): normal cognition Extrem General: Yes full ROM Results Reviewed Results Reviewed: Laboratory Tests 10/27/24 08/17/25 09:15 08:41 Estimat Average Glucose 171 Hemoglobin A1c % 7.6 H Urine Creatinine 77.64 Urine Microalbumin 28.0 Microalb/Creat Ratio 36.0 H Name: Armando Goldstein Age/Sex: 50/M : 1975 Unit#: [id number] Attend Dr: Shae Machado MD Re08/17/25 Status: DEP [facility] Disch: SPEC : [id number] AJAY: 08/17/25 STATUS: COMP REQ : [id number] RECD: 08/17/[address]: Shae Machado MD COMP: 08/17/25 ENTERED: 08/17/[address]: ORDERED: Met Prof Fast, AST, ALT, Lipid Panel Test Result Flag Reference Sodium 138 135-145 mmol/L Potassium 3.7 3.3-5.1 mmol/L CL 98 96-108 mmol/L CO2 32 H 22-29 mmol/L Gap 12 12-20 BUN 22 H 9-16 mg/dL Creat 0.98 0.5-1.4 mg/dL eGFR > 60 Chronic Kidney Disease: Estimated GFR < 60 mL/min/1.73m2 Severe Kidney Disease: Estimated GFR < 15 mL/min/1.73m2 FBS 144 H 60-99 mg/dL A fasting glucose of 126 mg/dl or greater on more than one occasion is considered diagnostic of diabetes. CA 9.4 8.4-10.2 mg/dL AST (GOT) 35 5-37 U/L ALT (GPT) 32 0-40 U/L Triglyceride 263 H <150 mg/dL Desirable Triglyceride: less than 150 mg/dL Borderline High Triglyceride 150-199 mg/dL High Triglyceride: 200-499 mg/dL Very High Triglyceride: greater than or equal to 5OO mg/dL Cholesterol 134 <200 mg/dL Desirable Cholesterol: less than 200 mg/dL Borderline High Cholesterol: 200-239 mg/dL High Cholesterol: greater than 239 mg/dL LDL Calculated 48 <100 mg/dL Desirable LDL: less than 100 mg/dL Near Optimal/Above Optimal LDL: 110-129 mg/dL Borderline High LDL: 130-159 mg/dL High LDL: 160-189 mg/dL Very High LDL: greater than or equal to 190 mg/dL HDL 34 L >40 mg/dL Desirable HDL: greater than 40 mg/dL Note: This HDL assay may give artificially Coding Level of Care Code Est Pt Prev Care 40-64y(91283) Diagnoses Annual visit for general adult medical examination with abnormal findings Z00.01 Diabetes mellitus with microalbuminuria, without long-term current use of insulin E11.29; R80.9 Mixed dyslipidemia E78.2 Essential hypertension I10 Diabetes mellitus with mild nonproliferative retinopathy E11.3299 Constipation K59.00 Advance directive discussed with patient Z71.89 Assessment & Plan Assessment & Plan (1) Annual visit for general adult medical examination with abnormal findings: Code(s): Z00.01 - Encounter for general adult medical examination with abnormal findings Plan: Recent fasting lab results were reviewed with patient. The patient is up-to-date on his immunizations. He was counseled to schedule his annual diabetic eye exam with [facility]. His last Cologuard was in 2023 and is not due again until 2026. He updated his healthcare proxy information (2) Diabetes mellitus with microalbuminuria, without long-term current use of in sulin: Code(s): E11.29 - Type 2 diabetes mellitus with other diabetic kidney complication; R80.9 - Proteinuria, unspecified Category: Medical Plan: The patient's glycemic control is improving, with a recent HbA1c of 7.6%. However, to further improve control and provide additional renal and cardiovascular protection, the dose of Mounjaro will be increased. He will be advised to complete his current supply of Mounjaro 2.5 mg for the next three weeks and then start the new prescription for 5 mg injected weekly. He was reminded of the importance of an annual diabetic eye exam and to have his blood work, including cholesterol and sugar levels, checked again in December, one week before his follow-up appointment. (3) Mixed dyslipidemia: Code(s): E78.2 - Mixed hyperlipidemia Category: Medical Plan: His lipid panel has shown improvement, with both triglycerides and LDL cholesterol decreasing. This is likely due to better glycemic control and exercise. He was encouraged to continue his exercise routine. A repeat lipid panel will be done in December (4) Essential hypertension: Code(s): I10 - Essential (primary) hypertension Category: Medical Plan: Blood pressure at goal of less than 130/80. Continue your irbesartan 300 mg daily and chlorthalidone 25 mg once a day with the with the metoprolol succinate ER 50 mg once a day. Reinforced importance of following a low sodium diet, getting regular exercise, and lowering stress levels. (5) Diabetes mellitus with mild nonproliferative retinopathy: Code(s): E11.3299 - Type 2 diabetes mellitus with mild nonproliferative diabetic retinopathy without macular edema, unspecified eye Category: Medical Plan: The patient's glycemic control is improving, with a recent HbA1c of 7.6%. However, to further improve control and provide additional renal and cardiovascular protection, the dose of Mounjaro will be increased. He will be advised to complete his current supply of Mounjaro 2.5 mg for the next three weeks and then start the new prescription for 5 mg injected weekly. He was reminded of the importance of an annual diabetic eye exam and to have his blood work, including cholesterol and sugar levels, checked again in December, one week before his follow-up appointment. (6) Constipation: Code(s): K59.00 - Constipation, unspecified Plan: this is a known side effect of Mounjaro due to slowed gut motility. He is currently taking docusate. Additionally, dietary modifications were recommended, including consuming papaya, prunes, and sweet potatoes. The use of fiber supplements like Benefiber or Metamucil was also suggested. He was advised that on the day of his injection, he should eat easily digestible foods like soup. (7) Advance directive discussed with patient: Code(s): Z71.89 - Other specified counseling Plan: Initiated the conversation about Advanced Directives. Advanced Directives help patients prepare for current and future decisions about their medical treatment and place of care. Discussed with patient that it is a process where a patients current condition and prognosis are reviewed, their wishes for information regarding their illness are elicited, and likely medical dilemmas are presented and options discussed. Healthcare proxy form completed today. The form can be amended as needed, reviewed yearly and make changes as needed Plan Patient was informed and verbally consented to the use of an ambient scribe for clinic note documentation during this visit. Orders: Orders Lipid Panel 12/09/25 E11.29 - Type 2 diabetes mellitus with other diabetic kidney complication, E11.3299 - Type 2 diabetes mellitus with mild nonproliferative diabetic retinopathy without macular edema, unspecified eye, E11.40 - Type 2 diabetes mellitus with diabetic neuropathy, unspecified, E78.2 - Mixed hyperlipidemia, I10 - Essential (primary) hypertension, R80.9 - Proteinuria, unspecified, S90.421A - Blister (nonthermal), right great toe, initial encounter, Z00.01 - Encounter for general adult medical examination with abnormal findings, Z71.89 - Other specified counseling Basic Metabolic Panel Fasting 12/09/25 E11.29 - Type 2 diabetes mellitus with other diabetic kidney complication, E11.3299 - Type 2 diabetes mellitus with mild nonproliferative diabetic retinopathy without macular edema, unspecified eye, E11.40 - Type 2 diabetes mellitus with diabetic neuropathy, unspecified, E78.2 - Mixed hyperlipidemia, I10 - Essential (primary) hypertension, R80.9 - Proteinuria, unspecified, S90.421A - Blister (nonthermal), right great toe, initial encounter, Z00.01 - Encounter for general adult medical examination with abnormal findings, Z71.89 - Other specified counseling Aspartate Amino Transferase 12/09/25 E11.29 - Type 2 diabetes mellitus with other diabetic kidney complication, E11.3299 - Type 2 diabetes mellitus with mild nonproliferative diabetic retinopathy without macular edema, unspecified eye, E11.40 - Type 2 diabetes mellitus with diabetic neuropathy, unspecified, E78.2 - Mixed hyperlipidemia, I10 - Essential (primary) hypertension, R80.9 - Proteinuria, unspecified, S90.421A - Blister (nonthermal), right great toe, initial encounter, Z00.01 - Encounter for general adult medical examination with abnormal findings, Z71.89 - Other specified counseling Alanine Aminotransferase 12/09/25 E11.29 - Type 2 diabetes mellitus with other diabetic kidney complication, E11.3299 - Type 2 diabetes mellitus with mild nonproliferative diabetic retinopathy without macular edema, unspecified eye, E11.40 - Type 2 diabetes mellitus with diabetic neuropathy, unspecified, E78.2 - Mixed hyperlipidemia, I10 - Essential (primary) hypertension, R80.9 - Proteinuria, unspecified, S90.421A - Blister (nonthermal), right great toe, initial encounter, Z00.01 - Encounter for general adult medical examination with abnormal findings, Z71.89 - Other specified counseling Hemoglobin A1c 12/09/25 E11.29 - Type 2 diabetes mellitus with other diabetic kidney complication, E11.3299 - Type 2 diabetes mellitus with mild nonproliferative diabetic retinopathy without macular edema, unspecified eye, E11.40 - Type 2 diabetes mellitus with diabetic neuropathy, unspecified, E78.2 - Mixed hyperlipidemia, I10 - Essential (primary) hypertension, R80.9 - Proteinuria, unspecified, S90.421A - Blister (nonthermal), right great toe, initial encounter, Z00.01 - Encounter for general adult medical examination with abnormal findings, Z71.89 - Other specified counseling Microalbumin, Random (w Creat) 12/09/25 E11.29 - Type 2 diabetes mellitus with other diabetic kidney complication, E11.3299 - Type 2 diabetes mellitus with mild nonproliferative diabetic retinopathy without macular edema, unspecified eye, E11.40 - Type 2 diabetes mellitus with diabetic neuropathy, unspecified, E78.2 - Mixed hyperlipidemia, I10 - Essential (primary) hypertension, R80.9 - Proteinuria, unspecified, S90.421A - Blister (nonthermal), right great toe, initial encounter, Z00.01 - Encounter for general adult medical examination with abnormal findings, Z71.89 - Other specified counseling Vitamin D 25-OH Total 12/09/25 E11.29 - Type 2 diabetes mellitus with other diabetic kidney complication, E11.3299 - Type 2 diabetes mellitus with mild nonproliferative diabetic retinopathy without macular edema, unspecified eye, E11.40 - Type 2 diabetes mellitus with diabetic neuropathy, unspecified, E78.2 - Mixed hyperlipidemia, I10 - Essential (primary) hypertension, R80.9 - Proteinuria, unspecified, S90.421A - Blister (nonthermal), right great toe, initial encounter, Z00.01 - Encounter for general adult medical examination with abnormal findings, Z71.89 - Other specified counseling Medications: Changed From Mounjaro (tirzepatide) for 4 weeks 2.5 mg (0.5 mL) subcut QWEEK 2 mL 5RF NS E11.29 - Type 2 diabetes mellitus with other diabetic kidney complication, E11.3299 - Type 2 diabetes mellitus with mild nonproliferative diabetic retinopathy without macular edema, unspecified eye, E11.65 - Type 2 diabetes mellitus with hyperglycemia, R80.9 - Proteinuria, unspecified To tirzepatide for 4 weeks 5 mg (0.5 mL) subcut QWEEK 2 mL 5RF E11.29 - Type 2 diabetes mellitus with other diabetic kidney complication, E11.3299 - Type 2 diabetes mellitus with mild nonproliferative diabetic retinopathy without macular edema, unspecified eye, E11.65 - Type 2 diabetes mellitus with hyperglycemia, R80.9 - Proteinuria, unspecified
== END 2025-08-20 09:29 | disposition home or self-care (01) ==
LOC: HO.HMCC 08:33
PROVIDERS: PCP Internal Medicine; Visit Provider Internal Medicine
DX: Z00.01 Encounter for general adult medical examination with abnormal findings (principal); E11.29 Type 2 diabetes mellitus with other diabetic kidney complication; E11.3299 Type 2 diabetes mellitus with mild nonproliferative diabetic retinopathy without macular edema, unspecified eye; R80.9 Proteinuria, unspecified; E78.2 Mixed hyperlipidemia; I10 Essential (primary) hypertension; K59.00 Constipation, unspecified; Z71.89 Other specified counseling